=== PATIENT | female | born 1985 | race Caucasian/White ===

== ENCOUNTER 2017-05-22 01:27 | Inpatient (IN) | payer OTHER ==
[2017-05-22] MEDS ORDERED: METOPROLOL TARTRATE 5 MG/5 ML INJ IV ONE ×2 (02:03→02:28)
[2017-05-22 02:41] LABS: Absolute Lymphocytes (CBC) 4.1 K/uL (0.7-4.9); Absolute Monocytes 0.7 K/uL (0.1-1.3); Absolute Neutrophil 5.9 K/uL (1.8-8.0); Basophils % 1.3 % (0-1.3); Eosinophils % 1.2 % (0-4.4); Hematocrit 44.9 % (36.0-45.0); MCH 27.9 pg (27.0-35.0); MCV 84.5 fL (80-100); MPV 9.4 fL (7.6-11.3); Monocytes % 6.5 % (3.3-12.3); RBC Red Blood Cell Count 5.31 M/uL (3.86-4.86)
[2017-05-22 02:54] LABS: Bicarbonate 24 mEq/L (21-31); Glucose Level 97 mg/dL (65-120); Potassium 3.2 mEq/L (3.6-5.0); Sodium Level 138 mEq/L (135-145)
--- NOTE | 2017-05-22 02:58 | EDPHYS ---
Physician Documentation [facility] Name: Rita Calles Age: 32 yrs Sex: Female : 1985 Arrival Date: 05/22/2017 Time: 01:29 Bed 2 Private MD: ED Physician Trevon Robles HPI: 05/22 02:53 This 32 yrs old Female presents to ER via Ambulatory with complaints of gs Irregular Pulse. 02:53 The patient presents with a history of irregular heart beat. Onset: The gs symptoms/episode began/occurred acutely, today. Duration: The patient or guardian reports a single episode, that is still ongoing. Modifying factors: The symptoms are aggravated by nothing. The symptoms are alleviated by nothing. Associated signs and symptoms: Pertinent negatives: chest pain. Severity of symptoms: At their worst the symptoms were severe in the emergency department the symptoms are unchanged. The patient has not experienced similar symptoms in the past. 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 - Social history:: Smoking status: Patient/guardian denies using tobacco. ROS: 02:53 All other systems are negative. gs Exam: 02:53 Head/Face: Normocephalic, atraumatic. Eyes: Pupils equal round and reactive to light, gs extra-ocular motions intact. Lids and lashes normal. Conjunctiva and sclera are non-icteric and not injected. Cornea within normal limits. Periorbital areas with no swelling, redness, or edema. ENT: Nares patent. No nasal discharge, no septal abnormalities noted. Tympanic membranes are normal and external auditory canals are clear. Oropharynx with no redness, swelling, or masses, exudates, or evidence of obstruction, uvula midline. Mucous membranes moist. Neck: Trachea midline, no thyromegaly or masses palpated, and no cervical lymphadenopathy. Supple, full range of motion without nuchal rigidity, or vertebral point tenderness. No Meningismus. Chest/axilla: Normal chest wall appearance and motion. Nontender with no deformity. No lesions are appreciated. Respiratory: Lungs have equal breath sounds bilaterally, clear to auscultation and percussion. No rales, rhonchi or wheezes noted. No increased work of breathing, no retractions or nasal flaring. Abdomen/GI: Soft, non-tender, with normal bowel sounds. No distension or tympany. No guarding or rebound. No evidence of tenderness throughout. Back: No spinal tenderness. No costovertebral tenderness. Full range of motion. Skin: Warm, dry with normal turgor. Normal color with no rashes, no lesions, and no evidence of cellulitis. MS/ Extremity: Pulses equal, no cyanosis. Neurovascular intact. Full, normal range of motion. Neuro: Awake and alert, GCS 15, oriented to person, place, time, and situation. Cranial nerves II-XII grossly intact. Motor strength 5/5 in all extremities. Sensory grossly intact. Cerebellar exam normal. Normal gait. 02:53 Constitutional: The patient appears alert, awake. 02:53 Cardiovascular: Rate: tachycardic, Rhythm: irregularly irregular, Pulses: no pulse deficits are appreciated, Heart sounds: normal. 02:53 ECG was reviewed by the Attending Physician. 02:53 ECG was reviewed by the Attending Physician. Vital Signs: 01:35 BP 175 / 154; Pulse 96; Resp 20; Temp 98.6(TE); Pulse Ox 100% on R/A; Weight 132.45 kg ak1 (R); Height 5 ft. 9 in. (175.26 cm) (R); Pain 0/10; 01:41 Pulse 161; bb 01:47 BP 171 / 126; Pulse 125; Resp 20; Pulse Ox 100% on R/A; ak1 01:49 BP 148 / 96; Pulse 120; Resp 18; Pulse Ox 100% on R/A; ak1 02:15 BP 112 / 96; Pulse 96; Resp 18; Pulse Ox 100% ; bp 03:46 BP 117 / 81; Pulse 105; Resp 18 S; Pulse Ox 100% ; ea 01:35 Body Mass Index 43.12 (132.45 kg, 175.26 cm) ak1 01:41 per EKG bb MDM: 01:50 Patient medically screened. gs 02:53 Differential diagnosis: arrythmia, dehydration, stress disorder, mi. Data reviewed: vital signs, nurses notes. Response to treatment: the patient's symptoms have markedly improved after treatment, and as a result, I will admit patient. 05/22 01:51 Order name: Basic Metabolic Panel 05/22 01:51 Order name: BNP 05/22 01:51 Order name: CBC with Diff 05/22 01:51 Order name: LFT's 05/22 01:51 Order name: Magnesium 05/22 01:51 Order name: PT-INR 05/22 01:51 Order name: Troponin (emerg Dept Use Only) 05/22 01:51 Order name: TSH 05/22 02:48 Order name: CBC with Automated Diff; Complete Time: 02:58 EDMN 05/22 02:52 Order name: Troponin (Emerg Dept Use Only); Complete Time: 02:58 EDMN 05/22 02:55 Order name: Basic Metabolic Panel [facility] 05/22 02:55 Order name: BNP B-Type Natriuretic Peptide; Complete Time: 02:58 EDMN 05/22 03:01 Order name: Liver (Hepatic) Function [facility] 05/22 03:01 Order name: Magnesium [facility] 05/22 01:51 Order name: XRAY Chest (1 view) 05/22 01:51 Order name: EKG; Complete Time: 01:53 05/22 01:51 Order name: Cardiac monitoring; Complete Time: 01:54 05/22 01:51 Order name: EKG - Nurse/Tech; Complete Time: 01:54 05/22 01:51 Order name: IV Saline Lock; Complete Time: 01:54 05/22 01:51 Order name: Labs collected and sent; Complete Time: 01:54 05/22 01:51 Order name: O2 Per Protocol; Complete Time: 01:54 05/22 03:02 Order name: Urine Dipstick--Ancillary (enter results) [facility] 05/22 03:02 Order name: Urine --Ancillary (enter results) [facility] 05/22 03:33 Order name: Thyroid Stimulating Hormone [facility] 05/22 03:44 Order name: Protime (+INR) [facility] 05/22 04:00 Order name: Urine --Ancillary [facility] 05/22 04:00 Order name: Urine Dipstick-Ancillary [facility] 05/22 01:51 Order name: O2 Sat Monitoring; Complete Time: 01:54 05/22 01:51 Order name: Urine Dipstick-Ancillary (obtain specimen); Complete Time: 03:08 05/22 02:23 Order name: EKG - Nurse/Tech; Complete Time: 03:08 EC:53 Rate is 161 beats/min. Rhythm is regular. QRS interval is normal. T waves are Normal. gs No ST changes noted. Clinical impression: Atrial Fibrillation. Interpreted by me. 02:53 Rate is 91 beats/min. Rhythm is irregularly irregular. QRS interval is normal. T waves gs are Normal. No ST changes noted. Clinical impression: Atrial Fibrillation. Interpreted by me. Administered Medications: 01:45 Drug: Lopressor 5 mg Route: IVP; Site: right antecubital; bp 01:48 Drug: Lopressor 5 mg Route: IVP; Site: right antecubital; bp 02:10 Drug: Lopressor 5 mg Route: IVP; Site: right antecubital; bp 02:13 Follow up: Response: Marked relief of symptoms bp 03:20 Drug: Aspirin Chewable Tablet 324 mg Route: PO; bp 03:49 Follow up: Response: No adverse reaction bp 03:20 Drug: Lovenox 1 mg/kg Route: Sub-Q; Site: right lower abdomen; bp 03:49 Follow up: Response: No adverse reaction bp Disposition: 05/22/17 02:57 Hospitalization ordered by Yana Dangelo for Inpatient Admission. Preliminary diagnosis is Paroxysmal atrial fibrillation. - Bed requested for Telemetry/MedSurg (Inpatient). - Status is Inpatient Admission. bp - Condition is Stable. - Problem is new. - Symptoms have improved. UTI on Admission? No Critical care time excluding procedures: 02:53 Critical care time: Bedside Care: 10 minutes, Consultation: 10 minutes, Family gs Intervention: 10 minutes. Total time: 30 minutes Signatures: Dispatcher [employer] EDMN Britta De RN RN mw Krenek, Amber, RN RN ak1 Trevon Robles MD MD gs Peltier, Brian, RN RN bp
--- NOTE | 2017-05-22 02:58 | ER ---
Nurse's Notes [facility] Name: Rita Calles Age: 32 yrs Sex: Female : 1985 Arrival Date: 05/22/2017 Time: 01:29 Bed 2 Private MD: Diagnosis: Paroxysmal atrial fibrillation Presentation: 05/22 01:33 Presenting complaint: Patient states: "fluttering in my chest" while trying to go to ak1 sleep. 01:36 Transition of care: patient was not received from another setting of care. Onset of ak1 symptoms was May 22, 2017. Care prior to arrival: None. 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 - Social history:: Smoking status: Patient/guardian denies using tobacco. Screenin:50 Abuse screen: Denies threats or abuse. Denies injuries from another. Nutritional bp screening: No deficits noted. Tuberculosis screening: No symptoms or risk factors identified. Fall Risk None identified. Assessment: 01:40 Reassessment: RECD 32YO WF WITH PALPITATIONS, OCCURRING SPONTANEOUSLY WHILE WATCHING bp MOVIE. NO CARDIAC HX. General: Appears distressed, comfortable, obese, Behavior is cooperative, appropriate for age, anxious. Pain: Denies pain. Neuro: Level of Consciousness is awake, alert, obeys commands, Oriented to person, place, time, situation, Appropriate for age. Cardiovascular: Rhythm is atrial fibrillation with rapid ventricular response. Respiratory: Airway is patent Respiratory effort is even, unlabored, Respiratory pattern is regular, symmetrical. GI: No signs and/or symptoms were reported involving the gastrointestinal system. : No signs and/or symptoms were reported regarding the genitourinary system. EENT: No deficits noted. Derm: No deficits noted. Musculoskeletal: Circulation, motion, and sensation intact. Range of motion: intact in all extremities. 01:50 Pain: Pain does not radiate. Pain began 1 hour ago. bp 02:35 Reassessment: SINUS RHYTHM TO SINUS TACH NOTED ON MONITOR. PT OUT OF BED TO B/S COMMODE.bp 03:30 Reassessment: ADMIT IN PROCESS. PT REMAINS IN SR TO ST ON MONITOR. bp Vital Signs: 01:35 BP 175 / 154; Pulse 96; Resp 20; Temp 98.6(TE); Pulse Ox 100% on R/A; Weight 132.45 kg ak1 (R); Height 5 ft. 9 in. (175.26 cm) (R); Pain 0/10; 01:41 Pulse 161; bb 01:47 BP 171 / 126; Pulse 125; Resp 20; Pulse Ox 100% on R/A; ak1 01:49 BP 148 / 96; Pulse 120; Resp 18; Pulse Ox 100% on R/A; ak1 02:15 BP 112 / 96; Pulse 96; Resp 18; Pulse Ox 100% ; bp 03:46 BP 117 / 81; Pulse 105; Resp 18 S; Pulse Ox 100% ; ea 01:35 Body Mass Index 43.12 (132.45 kg, 175.26 cm) ak1 01:41 per EKG bb ED Course: 01:29 Patient arrived in ED. al2 01:35 Arm band placed on Patient placed in an exam room, on a stretcher, on inner layer scrubber tender, ak1 on pulse oximetry, Patient notified of wait time. 01:37 Triage completed. ak1 01:40 Trevon Robles MD is Attending Physician. gs 01:40 Patient has correct armband on for positive identification. Placed in gown. Bed in low ak1 position. Call light in reach. Side rails up X 1. leaflet distributor on. Pulse ox on. NIBP on. 01:52 Elpidio Lopez, RANGEL is Primary Nurse. bp 01:53 Inserted saline lock: 20 gauge in right antecubital area, using aseptic technique. ak1 Blood collected. 02:32 X-ray completed. Portable x-ray completed in exam room. Patient tolerated procedure tm4 well. 02:57 Yana Dangelo MD is Hospitalizing Provider. gs 03:06 Urine collected: clean catch specimen, clear, katerin colored, EKG done, by ED staff, cb2 reviewed by Trevon Robles MD. 04:18 No provider procedures requiring assistance completed. Patient admitted, IV remains in bp place. Patient maintains SpO2 saturation greater than 95% on room air. Administered Medications: 01:45 Drug: Lopressor 5 mg Route: IVP; Site: right antecubital; bp 01:48 Drug: Lopressor 5 mg Route: IVP; Site: right antecubital; bp 02:10 Drug: Lopressor 5 mg Route: IVP; Site: right antecubital; bp 02:13 Follow up: Response: Marked relief of symptoms bp 03:20 Drug: Aspirin Chewable Tablet 324 mg Route: PO; bp 03:49 Follow up: Response: No adverse reaction bp 03:20 Drug: Lovenox 1 mg/kg Route: Sub-Q; Site: right lower abdomen; bp 03:49 Follow up: Response: No adverse reaction bp Outcome: 02:57 Decision to Hospitalize by Provider. 04:19 Admitted to Tele accompanied by tech, family with patient, via wheelchair, with chart, bp Report called to VANITA MULTANI 04:19 Condition: stable 04:19 Instructed on the need for admit. 04:21 Patient left the ED. bp Signatures: Catalina Reaves tm4 Kenia Leggett RN RN Katerin Hernandez RN RN Uriel Fonseca Elena RN Trevon Sarah ea, MD MD gs Peltier, Brian RN Payton Gould2 Corrections: (The following items were deleted from the chart) 02:38 01:41 Pulse 161bpm; george vazquez
[2017-05-22 03:00] LABS: ALT/SGPT 30 IU/L (10-60); AST/SGOT 32 IU/L (10-42); Albumin 4.2 g/dL (3.2-5.5); BUN Blood Urea Nitrogen 13 mg/dL (6-20); Bilirubin Direct 0.1 mg/dL (0-0.2); Bilirubin Total 0.6 mg/dL (0.3-1.2); Glomerular Filtration Rate > 90 mL/min (=/>90); Magnesium 1.9 mg/dL (1.8-2.5); Protein, Total 7.7 g/dL (6.0-8.3)
[2017-05-22] MEDS ORDERED: MORPHINE 4 MG/ML SYR IV PRN (03:20)
[2017-05-22] MEDS ORDERED: ALPRAZOLAM 0.25 MG TABLET PO PRN (03:20)
[2017-05-22 03:32] LABS: Thyroid Stimulating Hormone 3.48 uIU/mL (0.34-5.60)
[2017-05-22 03:43] LABS: Protime INR 1.09
[2017-05-22 04:00] LABS: Urine Blood NEGATIVE (NEG); Urine Glucose NEGATIVE (NEG); Urine Protein NEGATIVE (NEG); Urine pH 7.5 (5.0-7.0)
[2017-05-22] MEDS: METOPROLOL TARTRATE 5 MG/5 ML INJ IV SCH ×2 (04:00→04:05)
[2017-05-22] MEDS ORDERED: ASPIRIN 81 MG CHEWABLE TABLET ONE (04:02)
[2017-05-22] MEDS ORDERED: ENOXAPARIN 100 MG/ML SYR SQ ONE (04:02)
[2017-05-22 04:24] LABS: Alkaline Phosphatase 100 IU/L (42-121)
--- NOTE | 2017-05-22 04:51 | P.HP ---
Certification for Inpatient Patient admitted to: Inpatient With expected LOS: >2 Midnights Patient will require the following post-hospital care: None Practitioner: I am a practitioner with admitting privileges, knowledge of patient current condition, hospital course, and medical plan of care. Services: Services provided to patient in accordance with Admission requirements found in Title 42 Section 412.3 of the Code of Federal Regulations Patient History Date of Service: 05/22/17 Reason for admission: Atrial fibrillation with rapid ventricular response History of Present Illness: Patient is a 32-year-old female who is admitted to the hospital with atrial fibrillation. She says she has been feeling some fluttering on an off for a while. She has never been told that she has any cardiac arrhythmia issues. About a year ago, she had a gastric sleeve procedure. She lost 200 lbs. She used to weight 492 lbs. She has been doing well and states she had not eaten anything unusual. She does not take in a lot of caffeine. She does not drink energy drinks. She was admitted to the hospital for atrial fib with rapid ventricular response with a heart rate of 160. She was given IV Lopressor and her heart rate has come down. She will be admitted to the hospital for further evaluation. Allergies Sulfa (Sulfonamide Antibiotics) Allergy (Unverified 08/06/15 17:19) Unknown - Past Medical/Surgical History -: Morbid obesity -: Gastric sleeve procedure - Social History Smoking Status: Never smoker Alcohol use: No CD- Drugs: No Review of Systems 10-point ROS is otherwise unremarkable Physical Examination - Vital Signs Temperature: 98.6 F Blood Pressure: 117/81 Pulse: 105 Respirations: 18 - Physical Exam General: Alert, In no apparent distress, Oriented x3 HEENT: Atraumatic, PERRLA, Mucous membr. moist/pink, EOMI, Sclerae nonicteric Neck: Supple, 2+ carotid pulse no bruit, No LAD, Without JVD or thyroid abnormality Respiratory: Clear to auscultation bilaterally, Normal air movement Cardiovascular: Normal S1 S2, No murmurs, Irregular heart rate/rhythm Gastrointestinal: Normal bowel sounds, Soft and benign, Non-distended, No tenderness Musculoskeletal: No clubbing, No swelling, No tenderness Integumentary: No rashes Neurological: Normal gait, Normal speech, Normal strength at 5/5 x4 extr, Normal tone, Sensation intact, Cranial nerves 3-12 intact, Normal affect Lymphatics: No axilla or inguinal lymphadenopathy - Studies Laboratory Data (last 24 hrs) 05/22/17 01:41: PT 12.9 H, INR 1.09 05/22/17 01:41: WBC 11.0 H, Hgb 14.8, Hct 44.9, Plt Count 326 05/22/17 01:41: B-Natriuretic Peptide 78 05/22/17 01:41: Sodium 138, Potassium 3.2 L, BUN 13, Creatinine 0.56, Glucose 97 , Magnesium 1.9, Total Bilirubin 0.6, AST 32, ALT 30, Alkaline Phosphatase 100 Assessment & Plan - Problems (Diagnosis) (1) Atrial fibrillation with rapid ventricular response Current Visit: Yes Status: Acute (2) Morbid obesity Current Visit: Yes Status: Acute (3) Hx of bariatric surgery Current Visit: Yes Status: Acute - Plan 1. Serial troponins and EKG 2. Cardiology consultation 3. Echocardiogram 4. Anticoagulation & beta-jessie for rate control 5. Gentle hydration 6. GI and DVT prophylaxis Discharge Plan: Home Plan to discharge in: Greater than 2 days - Advance Directives Does patient have a Living Will: No Does patient have a Durable POA for Healthcare: No - Code Status/Comfort Care Code Status Assessed: Yes Code Status: Full Code Critical Care: No Time Spent Managing PTS Care (In Minutes): 50
[2017-05-22 04:56] VITALS: BMI 42.8
[2017-05-22] MEDS: METOPROLOL TAR 50 MG TAB PO SCH ×2 (05:00→07:54)
--- NOTE | 2017-05-22 06:34 | EKG ---
Test Date: 2017-05-22 Test Time: 02:52:34 Proposal Manager: DOMINIC MEASUREMENT RESULTS: Intervals: Rate: 91 AR: QRSD: 94 QT: 348 QTc: 428 [place]: P: AR: QRS: 29 T: 20 INTERPRETIVE STATEMENTS: Atrial fibrillation Cannot rule out Anterior infarct, age undetermined Abnormal ECG Compared to ECG 05/22/2017 01:41:30 Myocardial infarct finding now present ST (T wave) deviation no longer present Electronically Signed On 05-22-17 06:33:51 CDT by Aneudy Paredes
--- NOTE | 2017-05-22 06:35 | EKG ---
Test Date: 2017-05-22 Test Time: 01:41:30 Animal Maintenance Supervisor: DOMINIC MEASUREMENT RESULTS: Intervals: Rate: 161 NV: QRSD: 88 QT: 288 QTc: 471 [place]: P: NV: QRS: 39 T: -66 INTERPRETIVE STATEMENTS: Atrial fibrillation with rapid ventricular response Nonspecific ST and T wave abnormality, probably digitalis effect Abnormal ECG Compared to ECG 06/02/1994 07:00:00 ST (T wave) deviation now present Sinus rhythm no longer present Electronically Signed On 05-22-17 06:34:01 CDT by Aneudy Paredes
[2017-05-22 07:33] LABS: Thyroid Stimulating Hormone 1.25 uIU/mL (0.34-5.60)
--- NOTE | 2017-05-22 10:09 | P.PN ---
Subjective Date of Service: 05/22/17 Primary Care Provider: [facility] [place] Chief Complaint: Atrial fibrillation with rapid ventricular response Subjective: Doing well Physical Examination - Vital Signs Temperature: 97.5 F Blood Pressure: 104/55 Pulse: 64 Respirations: 16 Pulse Ox (%): 97 - Physical Exam General: Alert, In no apparent distress, Oriented x3, Cooperative HEENT: Atraumatic, Mucous membr. moist/pink Neck: Supple, No Thyromegaly Respiratory: Clear to auscultation bilaterally, Normal air movement Cardiovascular: Irregular heart rate/rhythm (Atrial fibrillation, rate controlled) Gastrointestinal: Normal bowel sounds, Soft and benign, Non-distended, No ascites, No tenderness, No masses, No rebound, No guarding Musculoskeletal: No erythema, No tenderness, No warmth Integumentary: No tenderness/swelling, No erythema, No warmth, No cyanosis Neurological: Normal speech, Normal strength at 5/5 x4 extr, Normal tone, Normal affect Lymphatics: No axilla or inguinal lymphadenopathy - Studies Laboratory Data (last 24 hrs) 05/22/17 01:41: PT 12.9 H, INR 1.09 05/22/17 01:41: WBC 11.0 H, Hgb 14.8, Hct 44.9, Plt Count 326 05/22/17 01:41: B-Natriuretic Peptide 78 05/22/17 01:41: Sodium 138, Potassium 3.2 L, BUN 13, Creatinine 0.56, Glucose 97 , Magnesium 1.9, Total Bilirubin 0.6, AST 32, ALT 30, Alkaline Phosphatase 100 Medications List Reviewed: Yes Assessment & Plan - Problems (Diagnosis) (1) Hypokalemia Current Visit: Yes Status: Acute Plan: Will continue to monitor and replace appropriately. Replacement protocol in place. (2) Atrial fibrillation with rapid ventricular response Current Visit: Yes Status: Acute Plan: Patient has been started on sotalol. Cardiology to assess and make further recommendations. Will obtain echocardiogram. Will monitor closely on medication. Patient on anti coagulation therapy. (3) Hx of bariatric surgery Current Visit: Yes Status: Chronic Plan: Overall stable. She has lost over 200 lb. (4) Morbid obesity Current Visit: Yes Status: Chronic Plan: Will continue with lifestyle modification education. Discharge Plan: Home Plan to discharge in: 48 Hours Time Spent Managing Pts Care (In Minutes): 55
[2017-05-22] MEDS ORDERED: POTASSIUM 25 MEQ EFFERV TAB PO ONE (10:16)
--- NOTE | 2017-05-22 10:45 | EKG ---
Test Date: 2017-05-22 Test Time: 08:30:07 Four Roll Calender Operator: MARVIN MEASUREMENT RESULTS: Intervals: Rate: 51 NH: 160 QRSD: 88 QT: 450 QTc: 414 [place]: P: 37 NH: 160 QRS: 44 T: 33 INTERPRETIVE STATEMENTS: Sinus bradycardia with marked sinus arrhythmia Low voltage QRS Borderline ECG Compared to ECG 05/22/2017 02:52:34 Low QRS voltage now present Atrial fibrillation no longer present Myocardial infarct finding no longer present Electronically Signed On 05-22-17 10:44:43 CDT by Aneudy Paredes
--- NOTE | 2017-05-22 12:34 | RAD REPORT ---
EXAM DESCRIPTION: RAD - Chest Single View - 05/22/2017 2:33 am CLINICAL HISTORY: Chest pain. COMPARISON: 07/12/2016 FINDINGS: Portable technique limits examination quality. The lungs are grossly clear. The heart is normal in size. No displaced fractures. IMPRESSION: No acute intrathoracic process suspected.
--- NOTE | 2017-05-22 13:12 | CON ---
Reason For Consult: Atrial fibrillation. History Of Present Illness: Over the past year, Mrs. Kohler notes flutter in her chest. It is so br ief, it goes away, she never sought medical attention, but yesterday it started fluttering, then when it did not go away, she came to the emergency room. She was found to be in atrial fib, the heart ra te was 161. She received beta-blockers, metoprolol and now has received at least 1 dose of Betapace and her telemetry shows sinus rhythm, we do not have a 12-lead EKG showing that she is in sinus rhyth m yet. The patient has never been diagnosed with atrial fibrillation before and she has morbid obesi ty, she weighed close to 500 pounds, had gastric sleeve, and lost 170 pounds over the last year. She does not have diabetes or high blood pressure, never used tobacco, never had myocardial infarction o r stroke or thyroid disease. She has had her tubes tied, she is multigravida. Social History: She uses no tobacco. Allergies: SHE IS ALLERGIC TO SULFA DRUGS, NO OTHER ALLERGIES. Physical Examination: General: She is alert, oriented, pleasant, not in distress. Vital Signs: 5 feet 9, 290 pounds. HEENT: Unremarkable. Carotids, no bruit. Lungs: Clear. Cardiac: Normal. Abdomen: Soft. Extremities: Normal. Laboratory Exam: She has had a TSH that is normal. Plan: I think we should give her Betapace to help control her rhythm at this point. She is not stri ctly high risk candidate, her CHADS-Vasc score would be just 1 or 2, so full anticoagulation will be optional. We will start Betapace. We will give her Xarelto while she is here, but maybe she can go home taking aspirin as the only anticoagulant. We should do stress test, echocardiogram and lung sca n to make sure she has not had pulmonary embolus. See if she has underlying pulmonary hypertension o r some other things that would cause her to have AFib and decide on outpatient therapy tomorrow. HARIS/BEENA Voice ID: [id number] Report ID: [id number]
[2017-05-22 14:50] LABS: CKMB Creatine Kinase MB 0.8 ng/ml (0.3-4.0)
[2017-05-22] MEDS ORDERED: RIVAROXABAN 20 MG TABLET PO SCH (17:00)
[2017-05-22] MEDS: SOTALOL HCL 80 MG TAB PO SCH (18:36)
[2017-05-22] MEDS: ACETAMINOPHEN 500 MG TAB PO PRN (20:37)
[2017-05-23 04:12] VITALS: O2SAT 99
[2017-05-23 04:17] LABS: Absolute Lymphocytes (CBC) 3.1 K/uL (0.7-4.9); Absolute Monocytes 0.5 K/uL (0.1-1.3); Absolute Neutrophil 3.4 K/uL (1.8-8.0); Basophils % 1.4 % (0-1.3); Eosinophils % 1.9 % (0-4.4); Hematocrit 38.7 % (36.0-45.0); Lymphocytes % 42.9 % (15.3-44.8); MCH 27.8 pg (27.0-35.0); MCV 84.7 fL (80-100); MPV 8.9 fL (7.6-11.3); RBC Red Blood Cell Count 4.57 M/uL (3.86-4.86)
[2017-05-23 04:25] LABS: Bicarbonate 28 mEq/L (21-31); Potassium 3.8 mEq/L (3.6-5.0); Sodium Level 138 mEq/L (135-145)
[2017-05-23 04:40] LABS: BUN Blood Urea Nitrogen 11 mg/dL (6-20); Glomerular Filtration Rate > 90 mL/min (=/>90); Glucose Level 96 mg/dL (65-120)
[2017-05-23] MEDS ORDERED: POTASSIUM CL SA 10 MEQ TAB PO ONE (04:57)
[2017-05-23] MEDS: SOTALOL HCL 80 MG TAB PO SCH (05:37)
[2017-05-23] MEDS: ACETAMINOPHEN 500 MG TAB PO PRN ×2 (05:38→11:27)
[2017-05-23] MEDS ORDERED: PANTOPRAZOLE 40MG TABLET PO SCH (06:30)
[2017-05-23] MEDS ORDERED: REGADENOSON 0.4 MG/5 ML SYR IV ONE (08:05)
--- NOTE | 2017-05-23 09:58 | ECHO ---
HEIGHT: 5 ft 9 in WEIGHT: 290 lb 1.6 oz DATE OF STUDY: 05/23/[address]: Aneudy Paredes MD 2-DIMENSIONAL: YES M.MODE: YES DOPPLER: YES COLOR FLOW: YES TDS: YES PORTABLE: DEFINITY: BUBBLE STUDY: DIAGNOSIS: ATRIAL FIBRILLATION, PULMONARY HYPERTENSION CARDIAC HISTORY: CATHERIZATION: NO SURGERY: NO PROSTHETIC VALVE: NO PACEMAKER: NO MEASUREMENTS (cm) DIASTOLIC (NORMALS) SYSTOLIC (NORMALS) IVSd 0.9 (0.6-1.2) LA Diam 3.8 (1.9-4.0) LVEF 60% LVIDd 5.6 (3.5-5.7) LVIDs 3.8 (2.0-3.5) %FS 32% LVPWd 0.9 (0.6-1.2) Ao Diam 3.0 (2.0-3.7) 2 DIMENSIONAL ASSESSMENT: RIGHT ATRIUM: NORMAL LEFT ATRIUM: NORMAL RIGHT VENTRICLE: NORMAL LEFT VENTRICLE: NORMAL TRICUSPID VALVE: NORMAL MITRAL VALVE: NORMAL PULMONIC VALVE: NORMAL AORTIC VALVE: NORMAL PERICARDIAL EFFUSION: NONE AORTIC ROOT: NORMAL LEFT VENTRICULAR WALL MOTION: NORMAL DOPPLER/COLOR FLOW: PHYSIOLOGIC TRICUSPID REGURGITATION. NORMAL RIGHT VENTRICULAR SYSTOLIC PRESSURE. COMMENTS: NORMAL 2-DIMENSIONAL ECHOCARDIOGRAM WITH DOPPLER. TECHNOLOGIST: ANAMIKA DURHAM
--- NOTE | 2017-05-23 10:28 | TREADPHA ---
DX: ATRIAL FIBRILLATION Date of Study: 05/23/2017 Ht: 5' 9 " Wt: 290 lb 1.6 oz Consulting Physician: JOSE ANGEL MEDICATIONS: TYLENOL, BETAPACE, PROTNIX HISTORY: 32 YEAR OLD FEMALE WITH COMPLAINTS OF ATRIAL FIBRILLATION. MEDICAL HISTORY: , EAR TUBES, GASTRIC SLEEVE PHYSICIAL EXAMINATION: RESTING B.P.: 107/62 RESTING H.R.: 51 RESTING EKG: SINUS BRADYCARDIA, OTHERWISE NORMAL PROTOCOL: LEXISCAN EXERCISE TIME: 3:30 B.P. AT PEAK STRESS: 111/56 IMPRESSION: LEXISCAN INJECTED, CARDIOLITE INJECTED PER PROTOCOL. SEE NUCLEAR MEDICINE REPORT. NO SUPRA VENTRICULAR TACHYARDIA, NO VENTRICULAR TACHYCARDIA, NO PREMATURE VENTRICULAR COMPLEXES. DENIED CHEST PAIN. NON DIAGNOSTIC EKG WITH LEXISCAN STRESS.
--- NOTE | 2017-05-23 10:33 | RAD REPORT ---
EXAM DESCRIPTION: CT - Chest For Pe Angio - 05/23/2017 10:24 am CLINICAL HISTORY: Chest pain. Atrial fibrillation. COMPARISON: 05/22/2017 plain radiograph. TECHNIQUE: CT angiogram of the pulmonary arteries was performed with MIP. All CT scans are performed using dose optimization technique as appropriate and may include automated exposure control or mA/KV adjustment according to patient size. FINDINGS: No evidence of pulmonary thromboembolism. No acute aortic finding demonstrated. The lungs are clear. No significant pericardial or pleural fluid. No concerning bony finding. IMPRESSION: No evidence of pulmonary thromboembolism. No acute lung findings.
--- NOTE | 2017-05-23 11:05 | RAD REPORT ---
EXAM DESCRIPTION: NM - Rest Stress Cardiac Imaging - 05/23/2017 10:59 am CLINICAL HISTORY: Chest pain. COMPARISON: None. TECHNIQUE: The patient was administered approximately 10mCi of Tc 99m Sestamibi prior to resting SPE CT imaging of the heart. The patient was then administered approximately 30 mCi of Tc 99m Sestamibi f ollowing exercise or pharmacologic stress. Multiplanar SPECT images were reviewed. FINDINGS: No stress induced ischemic defect is seen to suggest stress induced ischemia. A fixed defe ct is noted in the anterior wall likely scar tissue or breast attenuation artifact. The end diastolic volume is 157 ml, the end systolic volume is 78 ml, and the ejection fraction is 51 %. IMPRESSION: No stress induced ischemia.
[2017-05-23 15:30] VITALS: BP 110/58; TEMP 98.4
--- NOTE | 2017-05-23 16:11 | P.DS ---
Admission Date: 05/22/17 Discharge Date: 05/23/17 Primary Care Provider: [facility] Disposition: ROUTINE DISCHARGE Discharge Condition: GOOD Reason for Admission: Atrial fibrillation with rapid ventricular response Consultations: Cardiology-Dr. Paredes Procedures: Echocardiogram: Ejection fraction 60% otherwise unremarkable. CT chest: No pulmonary embolism noted. Stress test showed no stress-induced ischemia. - Problems (1) Hypokalemia Status: Acute (2) Atrial fibrillation with rapid ventricular response Onset Date: 05/23/17 Status: Acute (3) Hx of bariatric surgery Status: Chronic (4) Morbid obesity Onset Date: 05/23/17 Status: Chronic (5) Palpitations Status: Acute Brief History of Present Illness: 32-year-old female presented emergency room with palpitations. Patient was found to be in new onset atrial fibrillation. The patient was given Lopressor to help with her rate. The patient was admitted for further evaluation and treatment. Hospital Course: The patient did well during the course of his stay. The patient responded well to Lopressor. The patient was evaluated by cardiology. Cardiology started the patient on Betapace. The patient was also given Xarelto during her stay. Cardiology ordered a CT chest to evaluate for pulmonary embolism, echocardiogram and stress test. The CT chest showed no pulmonary embolism. Otherwise unremarkable. Echocardiogram was also unremarkable. Stress test showed no stress-induced ischemia. At discharge cardiology recommended she continue with Betapace 80 mg 1 pill twice daily. The patient was given the option to start chronic anti coagulation therapy like Xarelto or aspirin. The patient preferred to take aspirin. At discharge she will continue with aspirin 81 mg daily. Recommendation is for the patient to follow up with cardiology in 2-4 weeks to follow up this hospitalization. Patient may require further evaluation. Vital Signs/Physical Exam: Temp Pulse Resp BP Pulse Ox 98.4 F 59 16 110/58 L 98 05/23/17 15:29 05/23/17 15:29 05/23/17 15:29 05/23/17 15:29 05/23/17 15:29 General: Alert, In no apparent distress, Oriented x3, Cooperative HEENT: Atraumatic, Mucous membr. moist/pink Neck: Supple, No Thyromegaly Respiratory: Clear to auscultation bilaterally, Normal air movement Cardiovascular: Irregular heart rate/rhythm (Atrial fibrillation, rate controlled) Gastrointestinal: Normal bowel sounds, Soft and benign, Non-distended, No tenderness, No masses, No rebound, No guarding Musculoskeletal: No erythema, No tenderness, No warmth Integumentary: No tenderness/swelling, No erythema, No warmth, No cyanosis Neurological: Normal speech, Normal strength at 5/5 x4 extr, Normal tone, Normal affect Lymphatics: No axilla or inguinal lymphadenopathy Laboratory Data at Discharge: WBC 7.3 K/uL (4.3-10.9) D 05/23/17 03:56 Hgb 12.7 g/dL (12.0-15.0) 05/23/17 03:56 Hct 38.7 % (36.0-45.0) 05/23/17 03:56 Plt Count 265 K/uL (152-406) 05/23/17 03:56 PT 12.9 SECONDS (9.5-12.5) H 05/22/17 01:41 INR 1.09 05/22/17 01:41 Sodium 138 mEq/L (135-145) 05/23/17 03:56 Potassium 3.8 mEq/L (3.6-5.0) 05/23/17 03:56 BUN 11 mg/dL (6-20) 05/23/17 03:56 Creatinine 0.63 mg/dL (0.44-1.00) 05/23/17 03:56 Glucose 96 mg/dL (65-120) 05/23/17 03:56 Magnesium 2.0 mg/dL (1.8-2.5) 05/23/17 03:56 Total Bilirubin 0.6 mg/dL (0.3-1.2) 05/22/17 01:41 AST 32 IU/L (10-42) 05/22/17 01:41 ALT 30 IU/L (10-60) 05/22/17 01:41 Alkaline Phosphatase 100 IU/L (42-121) 05/22/17 01:41 Troponin I < 0.03 ng/mL (<0.03) 05/22/17 13:35 B-Natriuretic Peptide 78 pg/ml (<=100) 05/22/17 01:41 Triglycerides 44 mg/dL (35-160) 05/22/17 05:25 Cholesterol 148 mg/dL (<200) 05/22/17 05:25 HDL Cholesterol 38 mg/dL (29-89) 05/22/17 05:25 Cholesterol/HDL Ratio 3.89 05/22/17 05:25 Home Medications: Aspirin [Aspirin EC 81 MG] 81 mg PO DAILY #90 tablet. 05/23/17 Sotalol HCl [Betapace*] 80 mg PO BID 6AM 6PM #60 tab 05/23/17 New Medications: Aspirin [Aspirin EC 81 MG] 81 mg PO DAILY #90 tablet. Sotalol HCl [Betapace*] 80 mg PO BID 6AM 6PM #60 tab Patient Discharge Instructions: 1. Patient will need to follow up with her PCP in 1 week to follow up this hospitalization. 2. Patient presented with palpitations. Patient found to have new onset paroxysmally atrial fibrillation. Patient evaluated by Cardiology CT chest unremarkable. Echocardiogram unremarkable. Stress test showed no stress-induced ischemia. At discharge patient will continue with Betapace 80 mg 1 pill twice daily. Patient will also continue with aspirin 81 mg daily. Patient was given the option of chronic anti coagulation therapy, patient preferred aspirin. Recommendation is for the patient to follow up with cardiology in 2-4 weeks to follow up this hospitalization and continue her care. Diet: AHA Activity: Ad michelle Followup: Aneudy Paredes MD [ACTIVE - CAN ADMIT] - (follow up in 2-4 weeks, call to schedule appointment) Time spent managing pt's care (in minutes): 55
== END 2017-05-23 14:41 | disposition home or self-care (01) | DRG 309 ==
LOC: ER 01:27 → ERHOLD 02:59 → 4TH 03:32
PROVIDERS: ADMIT Hospitalist; ATTEND Hospitalist
DX: I48.0 Paroxysmal atrial fibrillation (principal); Z68.41 Body mass index [BMI] 40.0-44.9, adult; R00.2 Palpitations; E87.6 Hypokalemia; Z98.84 Bariatric surgery status; E66.01 Morbid (severe) obesity due to excess calories; Z88.2 Allergy status to sulfonamides
CPT/HCPCS: 36415; 71045; 71275; 78452; 80048; 80061; 80076; 81003; 81025; 82550; 82553; 83735; 83880; 84132; 84439; 84443; 84484; 85025; 85610; 93005; 93017; 93306; 96372; 96374; 99285; A9500; J1650; J2785; Q9967

== ENCOUNTER 2017-07-22 14:35 | Inpatient (IN) | payer OTHER ==
[2017-07-22] MEDS ORDERED: ACETAMINOPHEN 500 MG TAB PO PRN (15:17)
[2017-07-22 15:43] LABS: Absolute Lymphocytes (CBC) 2.5 K/uL (0.7-4.9); Absolute Monocytes 0.6 K/uL (0.1-1.3); Absolute Neutrophil 5.2 K/uL (1.8-8.0); Basophils % 1.1 % (0-1.3); Lymphocytes % 29.8 % (15.3-44.8); MCH 27.5 pg (27.0-35.0); MCV 86.2 fL (80-100); MPV 9.2 fL (7.6-11.3); Monocytes % 6.8 % (3.3-12.3); RBC Red Blood Cell Count 4.64 M/uL (3.86-4.86)
[2017-07-22 15:46] VITALS: BMI 43.2
[2017-07-22 16:10] LABS: Bicarbonate 27 mEq/L (21-31); Glucose Level 83 mg/dL (65-120); Potassium 3.5 mEq/L (3.6-5.0); Sodium Level 137 mEq/L (135-145)
[2017-07-22 16:11] LABS: BUN Blood Urea Nitrogen 16 mg/dL (6-20)
[2017-07-22] MEDS: FLECAINIDE 100 MG TAB PO SCH (18:40)
--- NOTE | 2017-07-22 19:46 | EKG ---
Test Date: 2017-07-22 Test Time: 17:47:09 Expenditure Requisition Clerk: ALEXIA MEASUREMENT RESULTS: Intervals: Rate: 69 CA: 154 QRSD: 98 QT: 418 QTc: 447 [place]: P: 37 CA: 154 QRS: 15 T: 17 INTERPRETIVE STATEMENTS: Normal sinus rhythm with sinus arrhythmia Normal ECG Compared to ECG 05/22/2017 08:30:07 Sinus bradycardia no longer present Electronically Signed On 07-22-17 19:46:07 CDT by Aneudy Paredes
[2017-07-22] MEDS: ZOLPIDEM TARTRATE 5 MG TABLET PO PRN (22:20)
--- NOTE | 2017-07-23 00:01 | HP ---
Date of Admission: 07/22/2017 Reason For Hospitalization: Initiation of antiarrhythmic drug therapy for atrial fibrillation. History Of Present Illness: Ms. Kohler is a woman who is multigravida. She has had morbid obesity w eight-loss surgery, lost a significant amount of weight, and has had several episodes of atrial fibri llation. She is a CHADS-Vasc 1 score, so she is not on chronic anticoagulation, and she has been huy ntaining sinus rhythm on Betapace. However, the Betapace resulted in profound bradycardia and fatigu e even on just 40 mg b.i.d. It is believed that she probably needs to try a different antiarrhythmic drugs, so we put her in the hospital having stopped Betapace 2 days ago and in order to initiate the rapy with flecainide 50 mg b.i.d. She has received 1 dose of that at the time of this dictation. Past Medical History: Otherwise, unremarkable. Allergies: SHE IS ALLERGIC TO SULFA DRUGS. Social History: She uses no tobacco. Rare alcohol. No illegal drugs. No history of MA, stroke, or diabetes. No history of any kind of vascular disease or blood clots. Physical Examination: Vital Signs: Height 5 feet 9 inches, weight 293 pounds, and body mass index 43.3. Lungs: Clear. Carotids: No bruit. Heart: Normal. Abdomen: Soft. Extremities: Normal. Diagnostic Studies: Her electrocardiogram shows sinus rhythm. It showed sinus bradycardia few days ago. Her heart rate now is 71, blood pressure 133/74, O2 saturation 99%, and temperature 97.6. Impression: My impression is that the patient has paroxysmal atrial fibrillation. She is in the [facility] p[facility] to initiate therapy with flecainide that is being done without any evident complications. She will be in the hospital 2 overnights while we observe her to make sure she does not have any proarrhy thmic effect from starting flecainide. MARIA ISABEL Voice ID: [id number]
[2017-07-23] MEDS: FLECAINIDE 100 MG TAB PO SCH ×2 (05:53→17:24)
[2017-07-23] MEDS: ASPIRIN EC 81 MG TAB PO SCH (08:01)
[2017-07-23 08:03] LABS: Urine Appearance CLEAR; Urine Bilirubin NEGATIVE (NEG); Urine Blood NEGATIVE (NEG); Urine Color YELLOW; Urine Glucose NEGATIVE (NEG); Urine Protein NEGATIVE (NEG); Urine Specific Gravity <=1.005 (1.005-1.030); Urine pH 7.5 (5.0-7.0)
[2017-07-23 08:29] LABS: Urine Microscopic Reflex ORDER UMIC
[2017-07-23 08:31] LABS: Urine Bacteria <20 /HPF (<20); Urine RBC <5 /HPF (NONE SEEN)
[2017-07-23 08:48] LABS: Urine Culture Reflex Order REFLEXED
--- NOTE | 2017-07-23 10:47 | PN ---
Subjective: Ms. Kohler is doing fine. Tolerating flecainide. Normal vital signs. No symptoms. No proarrhythmia. If she tolerates tonight's and tomorrow morning's dose she will be discharged with f lecainide b.i.d., aspirin to control atrial fibrillation. HARIS/BEENA Voice ID: [id number] Report ID: [id number]
--- NOTE | 2017-07-23 17:18 | EKG ---
Test Date: 2017-07-23 Test Time: 08:58:10 Supervisor Burling And Joining: KRANTHI MEASUREMENT RESULTS: Intervals: Rate: 80 OR: 128 QRSD: 88 QT: 380 QTc: 438 [place]: P: 45 OR: 128 QRS: 48 T: 42 INTERPRETIVE STATEMENTS: Normal sinus rhythm Nonspecific ST abnormality Abnormal ECG Compared to ECG 07/22/2017 17:47:09 ST (T wave) deviation now present Sinus arrhythmia no longer present Electronically Signed On 07-23-17 17:17:47 CDT by Aneudy Paredes
[2017-07-23] MEDS: ZOLPIDEM TARTRATE 5 MG TABLET PO PRN (21:00)
[2017-07-24] MEDS: FLECAINIDE 100 MG TAB PO SCH (05:25)
[2017-07-24] MEDS: ASPIRIN EC 81 MG TAB PO SCH (08:50)
--- NOTE | 2017-07-24 10:38 | EKG ---
Test Date: 2017-07-24 Test Time: 07:31:44 Labor Relations Consultant: MARVIN MEASUREMENT RESULTS: Intervals: Rate: 51 CT: 156 QRSD: 96 QT: 454 QTc: 418 [place]: P: 48 CT: 156 QRS: 48 T: 32 INTERPRETIVE STATEMENTS: Sinus bradycardia with sinus arrhythmia Borderline ECG Compared to ECG 07/23/2017 08:58:10 Sinus rhythm no longer present ST (T wave) deviation no longer present Electronically Signed On 07-24-17 10:38:32 CDT by Aneudy Paredes
[2017-07-24 12:40] VITALS: BP 150/79; TEMP 98.4
[2017-07-24 12:58] VITALS: O2SAT 100
--- NOTE | 2017-07-24 13:45 | DS ---
Date of Discharge: 07/24/2017 Discharge Diagnosis: Paroxysmal atrial fibrillation, resolved, maintaining sinus rhythm. Discharge Medications: Flecainide or Tambocor 50 mg twice a day, aspirin 81 mg once per day. Hospital Course: The patient was admitted solely for the reason to be monitored while we initiate an tiarrhythmic drug therapy. She had no complications taking flecainide. The EKG did not show prolong ation of the QRS or QT interval. No proarrhythmic effects. No other side effects associated. She i s discharged home taking aspirin, flecainide in stable condition, trying to prevent episodes of atria l fibrillation. HARIS/BEENA Voice ID: [id number] Report ID: [id number]
== END 2017-07-24 12:39 | disposition home or self-care (01) | DRG 309 ==
LOC: 4TH 15:00
PROVIDERS: ADMIT Internal Medicine; ATTEND Internal Medicine
DX: I48.0 Paroxysmal atrial fibrillation (principal); Z68.41 Body mass index [BMI] 40.0-44.9, adult; E66.9 Obesity, unspecified; Z88.2 Allergy status to sulfonamides; Z98.84 Bariatric surgery status
CPT/HCPCS: 36415; 80048; 81003; 81015; 85025; 87086; 87088; 93005

== ENCOUNTER 2017-08-16 09:19 | Emergency (ER) | payer OTHER ==
[2017-08-16] MEDS ORDERED: NA CHLORIDE 0.9% 1,000 ML ONE (10:07)
--- NOTE | 2017-08-16 10:32 | RAD REPORT ---
EXAM DESCRIPTION: VAS - Extrem Venous W Compress Luis A - 08/16/2017 10:21 am CLINICAL HISTORY: Bilateral leg edema and swelling. COMPARISON: None. TECHNIQUE: Real-time sonographic interrogation of the left and right lower extremity deep venous sys tems was performed. FINDINGS: Normal compressibility, flow augmentation, phasic flow and spontaneous flow is identified in both the left and right lower extremity deep venous systems. IMPRESSION: No sonographic evidence of left or right lower extremity deep venous thrombosis.
[2017-08-16 10:34] LABS: Absolute Lymphocytes (CBC) 1.8 K/uL (0.7-4.9); Absolute Monocytes 0.6 K/uL (0.1-1.3); Absolute Neutrophil 5.6 K/uL (1.8-8.0); Basophils % 1.1 % (0-1.3); Eosinophils % 1.1 % (0-4.4); Hematocrit 41.8 % (36.0-45.0); MCH 28.2 pg (27.0-35.0); MCV 85.5 fL (80-100); Monocytes % 7.5 % (3.3-12.3); RBC Red Blood Cell Count 4.89 M/uL (3.86-4.86)
[2017-08-16 10:36] LABS: Protime INR 1.09
--- NOTE | 2017-08-16 10:36 | RAD REPORT ---
EXAM DESCRIPTION: RAD - Chest Single View - 08/16/2017 10:30 am CLINICAL HISTORY: Chest pain. COMPARISON: 07/12/2016 FINDINGS: Portable technique limits examination quality. The lungs are grossly clear. Cardiac silhouette is mildly prominent. No displaced fractures. IMPRESSION: No acute intrathoracic process suspected.
[2017-08-16 12:14] LABS: Bicarbonate 26 mEq/L (21-31); CKMB Creatine Kinase MB 1.2 ng/ml (0.3-4.0); Glucose Level 93 mg/dL (65-120); Lipase 20 U/L (22-51); Potassium 3.5 mEq/L (3.6-5.0); Sodium Level 138 mEq/L (135-145)
[2017-08-16 12:16] LABS: ALT/SGPT 33 IU/L (10-60); AST/SGOT 23 IU/L (10-42); Albumin 4.1 g/dL (3.2-5.5); BUN Blood Urea Nitrogen 12 mg/dL (6-20); Bilirubin Total 0.4 mg/dL (0.3-1.2); Creatine Phosphokinase 51 IU/L (22-269); Magnesium 1.8 mg/dL (1.8-2.5); Protein, Total 7.7 g/dL (6.0-8.3)
[2017-08-16 12:19] LABS: Alkaline Phosphatase 103 IU/L (42-121)
[2017-08-16 12:20] LABS: Bilirubin Direct 0.1 mg/dL (0-0.2)
[2017-08-16 12:30] LABS: Urine Blood 1+ (NEG); Urine Glucose NEGATIVE (NEG); Urine Protein NEGATIVE (NEG); Urine Specific Gravity <1.005 (1.005-1.030); Urine pH 6.5 (5.0-7.0)
--- NOTE | 2017-08-16 13:01 | RAD REPORT ---
EXAM DESCRIPTION: CT - Chest For Pe Angio - 08/16/2017 12:45 pm CLINICAL HISTORY: Chest pain. Shortness of breath COMPARISON: 05/23/2017 TECHNIQUE: CT angiogram of the pulmonary arteries was performed with MIP. All CT scans are performed using dose optimization technique as appropriate and may include automated exposure control or mA/KV adjustment according to patient size. FINDINGS: No evidence of pulmonary thromboembolism. No acute aortic finding demonstrated. The lungs are clear. No significant pericardial or pleural fluid. No concerning bony finding. Postsurgical changes are present about the stomach. IMPRESSION: No evidence of pulmonary thromboembolism. No acute lung findings.
[2017-08-16] MEDS ORDERED: Mastisol Adhesive Liq ONE (13:23)
[2017-08-16] MEDS ORDERED: ASPIRIN 81 MG CHEWABLE TABLET ONE (13:35)
[2017-08-16] MEDS ORDERED: CEFTRIAXONE/SWI 1gm 1 GM/10 ML SYR ONE (13:36)
[2017-08-16] MEDS ORDERED: POTASSIUM CL SA 10 MEQ TAB PO ONE (13:36)
--- NOTE | 2017-08-16 13:56 | EDPHYS ---
Physician Documentation [facility] Name: Rita Calles Age: 32 yrs Sex: Female : 1985 Arrival Date: 08/16/2017 Time: 09:20 Bed 8 Private MD: ED Physician Kaleb Babb HPI: 08/16 09:50 This 32 yrs old Female presents to ER via Ambulatory with complaints of penny Shortness Of Breath. 09:50 The patient has shortness of breath at rest, with light activity. Onset: The penny symptoms/episode began/occurred 2 day(s) ago. Duration: The symptoms are continuous, and are unchanged since they started. The patient's shortness of breath has no apparent modifying factors. Associated signs and symptoms: The patient has no apparent associated signs or symptoms. Severity of symptoms: At their worst the symptoms were mild in the emergency department the symptoms are unchanged. The patient has not experienced similar symptoms in the past. 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 - Social history:: Smoking status: Patient/guardian denies using tobacco. - Family history:: not pertinent. - Ebola Screening: : No symptoms or risks identified at this time. ROS: 09:50 Constitutional: Negative for fever, chills, and weight loss, Eyes: Negative for injury, penny pain, redness, and discharge, ENT: Negative for injury, pain, and discharge, Neck: Negative for injury, pain, and swelling, Cardiovascular: Negative for chest pain, palpitations, and edema, Abdomen/GI: Negative for abdominal pain, nausea, vomiting, diarrhea, and constipation, Back: Negative for injury and pain, : Negative for injury, bleeding, discharge, and swelling, MS/Extremity: Negative for injury and deformity, Skin: Negative for injury, rash, and discoloration, Neuro: Negative for headache, weakness, numbness, tingling, and seizure, Psych: Negative for depression, anxiety, suicide ideation, homicidal ideation, and hallucinations, Allergy/Immunology: Negative for hives, rash, and allergies, Endocrine: Negative for neck swelling, polydipsia, polyuria, polyphagia, and marked weight changes, Hematologic/Lymphatic: Negative for swollen nodes, abnormal bleeding, and unusual bruising. 09:50 Respiratory: Positive for shortness of breath, at rest. Exam: 09:50 Constitutional: This is a well developed, well nourished patient who is awake, alert, penny and in no acute distress. Head/Face: Normocephalic, atraumatic. Eyes: Pupils equal round and reactive to light, extra-ocular motions intact. Lids and lashes normal. Conjunctiva and sclera are non-icteric and not injected. Cornea within normal limits. Periorbital areas with no swelling, redness, or edema. ENT: Nares patent. No nasal discharge, no septal abnormalities noted. Tympanic membranes are normal and external auditory canals are clear. Oropharynx with no redness, swelling, or masses, exudates, or evidence of obstruction, uvula midline. Mucous membranes moist. Neck: Trachea midline, no thyromegaly or masses palpated, and no cervical lymphadenopathy. Supple, full range of motion without nuchal rigidity, or vertebral point tenderness. No Meningismus. Chest/axilla: Normal chest wall appearance and motion. Nontender with no deformity. No lesions are appreciated. Cardiovascular: Regular rate and rhythm with a normal S1 and S2. No gallops, murmurs, or rubs. Normal PMI, no JVD. No pulse deficits. Respiratory: Lungs have equal breath sounds bilaterally, clear to auscultation and percussion. No rales, rhonchi or wheezes noted. No increased work of breathing, no retractions or nasal flaring. Abdomen/GI: Soft, non-tender, with normal bowel sounds. No distension or tympany. No guarding or rebound. No evidence of tenderness throughout. Back: No spinal tenderness. No costovertebral tenderness. Full range of motion. Female : Normal external genitalia. Skin: Warm, dry with normal turgor. Normal color with no rashes, no lesions, and no evidence of cellulitis. MS/ Extremity: Pulses equal, no cyanosis. Neurovascular intact. Full, normal range of motion. Neuro: Awake and alert, GCS 15, oriented to person, place, time, and situation. Cranial nerves II-XII grossly intact. Motor strength 5/5 in all extremities. Sensory grossly intact. Cerebellar exam normal. Normal gait. Psych: Awake, alert, with orientation to person, place and time. Behavior, mood, and affect are within normal limits. Vital Signs: 09:36 BP 135 / 67; Pulse 83; Resp 18; Temp 97.5; Pulse Ox 100% on R/A; ph 10:59 BP 122 / 66; Pulse 54; Resp 18; Pulse Ox 100% on R/A; ph 12:00 BP 128 / 62; Pulse 57; Resp 18; Pulse Ox 99% on R/A; ph 12:58 BP 134 / 57; Pulse 60; Resp 18; Pulse Ox 98% on R/A; ph 14:30 BP 127 / 58; Pulse 59; Resp 18; Temp 98.0(TE); Pulse Ox 99% on R/A; ph MDM: 09:27 Patient medically screened. [facility] 09:52 Data reviewed: vital signs, nurses notes, lab test result(s), EKG, radiologic studies, [facility] CT scan, doppler, plain films. 08/16 09:49 Order name: Basic Metabolic Panel; Complete Time: 12:55 [facility] 08/16 09:49 Order name: BNP; Complete Time: 11:02 [facility] 08/16 09:49 Order name: CBC with Diff; Complete Time: 11:02 [facility] 08/16 09:49 Order name: Ckmb; Complete Time: 12:55 [facility] 08/16 09:49 Order name: CPK; Complete Time: 12:55 [facility] 08/16 09:49 Order name: LFT's; Complete Time: 12:55 [facility] 08/16 09:49 Order name: Magnesium; Complete Time: 12:55 [facility] 08/16 09:49 Order name: PT-INR; Complete Time: 11:02 [facility] 08/16 09:49 Order name: Ptt, Activated; Complete Time: 11:02 [facility] 08/16 09:49 Order name: Troponin (emerg Dept Use Only); Complete Time: 11:02 [facility] 08/16 09:50 Order name: Lipase; Complete Time: 12:55 [facility] 08/16 09:50 Order name: Urine Culture [facility] 08/16 12:05 Order name: Urine Dipstick--Ancillary (enter results); Complete Time: 12:55 ag 08/16 12:05 Order name: Urine --Ancillary (enter results); Complete Time: 12:55 08/16 09:49 Order name: Urine Test (obtain specimen); Complete Time: 13:38 [facility] 08/16 09:49 Order name: XRAY Chest (1 view); Complete Time: 11:02 [facility] 08/16 09:49 Order name: EKG; Complete Time: 09:49 [facility] 08/16 09:49 Order name: Cardiac monitoring; Complete Time: 09:56 [facility] 08/16 09:49 Order name: EKG - Nurse/Tech; Complete Time: 13:38 [facility] 08/16 09:49 Order name: IV Saline Lock; Complete Time: 09:56 [facility] 08/16 09:49 Order name: US Extremity Venous W Compression Luis A; Complete Time: 11:02 [facility] 08/16 09:49 Order name: CT Chest For PE Angio; Complete Time: 13:07 [facility] 08/16 12:07 Order name: Test, Serum; Complete Time: 13:07 [facility] 08/16 13:07 Order name: Ckmb; Complete Time: 13:55 [facility] 08/16 13:07 Order name: Creatine Phosphokinase; Complete Time: 13:55 [facility] 08/16 13:07 Order name: Troponin (emerg Dept Use Only); Complete Time: 13:55 [facility] 08/16 09:49 Order name: Labs collected and sent; Complete Time: 09:56 [facility] 08/16 09:49 Order name: O2 Per Protocol; Complete Time: 09:56 [facility] 08/16 09:49 Order name: O2 Sat Monitoring; Complete Time: 09:56 [facility] 08/16 09:49 Order name: Urine Dipstick-Ancillary (obtain specimen); Complete Time: 11:47 [facility] 08/16 13:07 Order name: Repeat Cardiac Enzymes at; Complete Time: 13:29 [facility] Administered Medications: 10:45 Drug: NS 0.9% 1000 ml Route: IV; Rate: 1 bolus; Site: right antecubital; ph 13:00 Follow up: Response: No adverse reaction; IV Status: Completed infusion ph 13:37 Drug: Potassium Chloride 20 mEq Route: PO; ph 14:00 Follow up: Response: No adverse reaction ph 13:37 Drug: Aspirin 81 mg Route: PO; ph 14:00 Follow up: Response: No adverse reaction ph 13:38 Drug: Rocephin - (cefTRIAXone) 1 grams Route: IVPB; Infused Over: 30 mins; Site: right ph antecubital; 14:00 Follow up: Response: No adverse reaction; IV Status: Completed infusion ph Disposition: 08/16/17 13:55 Discharged to Home. Impression: Dyspnea, Palpitations, Obesity, unspecified, Cystitis, Hypokalemia. - Condition is Stable. - Discharge Instructions: Atrial Fibrillation, Dysuria, Obesity, Palpitations, Aspirin and Your Heart, Palpitations, Faey-vb-Urfs, Obesity, [id number]. - Prescriptions for Cipro 250 mg Oral Tablet - take 1 tablet by ORAL route every 12 hours; 10 tablet. - Medication Reconciliation Form, Thank You Letter, Antibiotic Education, Prescription Opioid Use, Work release form form. - Follow up: Private Physician; When: 2 - 3 days; Reason: Recheck today's complaints, Continuance of care, Re-evaluation by your physician. Follow up: Josiah Stephens MD; When: 2 - 3 days; Reason: Recheck today's complaints, Re-evaluation by your physician. - Problem is new. - Symptoms have improved. Signatures: Dispatcher [employer] EDMS Kaleb Babb MD MD cha Smirch, Shelby, RN RN Ayla Jones RN RN Corrections: (The following items were deleted from the chart) 13:56 13:55 08/16/2017 13:55 Discharged to Home. Impression: Dyspnea; Palpitations; Obesity, penny unspecified; Cystitis; Hypokalemia. Condition is Stable. Discharge Instructions: Atrial Fibrillation, Obesity, Palpitations, Aspirin and Your Heart, Palpitations, [id number], Obesity, Mveq-ob-Qftg, Dysuria. Prescriptions for Cipro 250 mg Oral Tablet - take 1 tablet by ORAL route every 12 hours; 10 tablet. and Forms are Medication Reconciliation Form, Thank You Letter, Antibiotic Education, Prescription Opioid Use. Follow up: Private Physician; When: 2 - 3 days; Reason: Recheck today's complaints, Continuance of care, Re-evaluation by your physician. Problem is new. Symptoms have improved. [facility] 15:10 13:56 08/16/2017 13:55 Discharged to Home. Impression: Dyspnea; Palpitations; Obesity, ss unspecified; Cystitis; Hypokalemia. Condition is Stable. Discharge Instructions: Atrial Fibrillation, Obesity, Palpitations, Aspirin and Your Heart, Palpitations, Lcal-bc-Avjl, Obesity, Rsxw-it-[id number], Dysuria. Prescriptions for Cipro 250 mg Oral Tablet - take 1 tablet by ORAL route every 12 hours; 10 tablet. and Forms are Medication Reconciliation Form, Thank You Letter, Antibiotic Education, Prescription Opioid Use. Follow up: Private Physician; When: 2 - 3 days; Reason: Recheck today's complaints, Continuance of care, Re-evaluation by your physician. Follow up: Josiah Stephens; When: 2 - 3 days; Reason: Recheck today's complaints, Re-evaluation by your physician. Problem is new. Symptoms have improved. penny
--- NOTE | 2017-08-16 13:56 | ER ---
Nurse's Notes [facility] Name: Rita Calles Age: 32 yrs Sex: Female : 1985 Arrival Date: 08/16/2017 Time: 09:20 Bed 8 Private MD: Diagnosis: Dyspnea;Palpitations;Obesity, unspecified;Cystitis;Hypokalemia Presentation: 08/16 09:33 Presenting complaint: Patient states: " I was at work when I got SOB all of a sudden, I ph felt dizzy when it happened too." Pt denies symptoms at this time, also reports chest pressure and nausea when episode occurred, reports hx of A-fib, denies palpitations. Transition of care: patient was not received from another setting of care. Onset of symptoms was August 16, 2017. Risk Assessment: Do you want to hurt yourself or someone else? Patient reports no desire to harm self or others. Initial Sepsis Screen: Does the patient meet any 2 criteria? No. Patient's initial sepsis screen is negative. Does the patient have a suspected source of infection? No. Patient's initial sepsis screen is negative. Care prior to arrival: None. 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 - Social history:: Smoking status: Patient/guardian denies using tobacco. - Family history:: not pertinent. - Ebola Screening: : No symptoms or risks identified at this time. Screenin:52 Abuse screen: Denies threats or abuse. Denies injuries from another. Nutritional ph screening: No deficits noted. Tuberculosis screening: No symptoms or risk factors identified. Fall Risk None identified. Assessment: 09:53 General: Appears in no apparent distress. comfortable, obese, well groomed, Behavior is ph calm, cooperative, appropriate for age, Denies fever, feeling ill. Pain: Denies pain. Neuro: Level of Consciousness is awake, alert, obeys commands, Oriented to person, place, time, situation. Cardiovascular: Reports lightheadedness, nausea, shortness of breath, Denies diaphoresis, palpitations, vomiting, Capillary refill < 3 seconds in bilateral fingers Patient's skin is warm and dry. Rhythm is atrial fibrillation Chest pain quality is heaviness. Respiratory: Reports intermittent episodes of SOB Airway is patent Respiratory effort is even, unlabored, Respiratory pattern is regular, symmetrical, Breath sounds are clear bilaterally. GI: No signs and/or symptoms were reported involving the gastrointestinal system. Derm: Skin is intact, is healthy with good turgor, Skin is pink, warm \\T\\ dry. Musculoskeletal: Circulation, motion, and sensation intact. Range of motion: intact in all extremities. 11:00 Reassessment: Patient appears in no apparent distress at this time. No changes from ph previously documented assessment. Patient and/or family updated on plan of care and expected duration. Pain level reassessed. Patient is alert, oriented x 3, equal unlabored respirations, skin warm/dry/pink. 12:00 Reassessment: Patient appears in no apparent distress at this time. Patient and/or ph family updated on plan of care and expected duration. Pain level reassessed. Patient is alert, oriented x 3, equal unlabored respirations, skin warm/dry/pink. Pt resting quietly, VSS, awaiting lab results and CT scan, VSS. 12:56 Reassessment: Patient appears in no apparent distress at this time. Patient and/or ph family updated on plan of care and expected duration. Pain level reassessed. Patient is alert, oriented x 3, equal unlabored respirations, skin warm/dry/pink. Pt resting quietly, awaiting CT results, denies SOB at this time. 14:30 Reassessment: Patient appears in no apparent distress at this time. Patient and/or ph family updated on plan of care and expected duration. Pain level reassessed. Patient is alert, oriented x 3, equal unlabored respirations, skin warm/dry/pink. Pt resting quietly, awaiting discharge. Vital Signs: 09:36 BP 135 / 67; Pulse 83; Resp 18; Temp 97.5; Pulse Ox 100% on R/A; ph 10:59 BP 122 / 66; Pulse 54; Resp 18; Pulse Ox 100% on R/A; ph 12:00 BP 128 / 62; Pulse 57; Resp 18; Pulse Ox 99% on R/A; ph 12:58 BP 134 / 57; Pulse 60; Resp 18; Pulse Ox 98% on R/A; ph 14:30 BP 127 / 58; Pulse 59; Resp 18; Temp 98.0(TE); Pulse Ox 99% on R/A; ph ED Course: 09:20 Patient arrived in ED. as 09:27 Kaleb Babb MD is Attending Physician. penny 09:33 Ayla Jones, RANGEL is Primary Nurse. ph 09:36 Triage completed. ph 09:52 Arm band placed on. ph 09:53 Patient has correct armband on for positive identification. Bed in low position. Call ph light in reach. Side rails up X 1. quality assurance monitor body on. Pulse ox on. NIBP on. Warm blanket given. 09:55 Inserted saline lock: 20 gauge in right antecubital area, using aseptic technique. ph Blood collected. 10:02 Patient taken to ultrasound. via stretcher. aa4 10:14 US Extremity Venous W Compression Luis A In Process Unspecified. EDMS 10:22 Ultrasound completed. Patient tolerated well. Patient moved back from ultrasound. aa4 10:28 X-ray completed. Portable x-ray completed in exam room. jb2 10:30 XRAY Chest (1 view) In Process Unspecified. EDMS 10:41 EKG done, by civil cadd technician. reviewed by Kaleb Babb MD. at1 11:05 Radiology exam delayed due to lab results not completed at this time. (BUN/Creatinine). eh 12:[address] via wheelchair. sw 12:45 CT completed. Patient tolerated procedure well. Patient moved back from CT. sw 12:45 CT Chest For PE Angio In Process Unspecified. EDMS 13:56 Josiah Stephens MD is Referral Physician. penny 15:00 No provider procedures requiring assistance completed. IV discontinued, intact, ph bleeding controlled, No redness/swelling at site. Pressure dressing applied. Administered Medications: 10:45 Drug: NS 0.9% 1000 ml Route: IV; Rate: 1 bolus; Site: right antecubital; ph 13:00 Follow up: Response: No adverse reaction; IV Status: Completed infusion ph 13:37 Drug: Potassium Chloride 20 mEq Route: PO; ph 14:00 Follow up: Response: No adverse reaction ph 13:37 Drug: Aspirin 81 mg Route: PO; ph 14:00 Follow up: Response: No adverse reaction ph 13:38 Drug: Rocephin - (cefTRIAXone) 1 grams Route: IVPB; Infused Over: 30 mins; Site: right ph antecubital; 14:00 Follow up: Response: No adverse reaction; IV Status: Completed infusion ph Outcome: 13:55 Discharge ordered by . penny 15:10 Patient left the ED. 15:10 Discharged to home ambulatory, with significant other. ph 15:10 Condition: good 15:10 Discharge instructions given to patient, Instructed on discharge instructions, follow up and referral plans. Demonstrated understanding of instructions, follow-up care. Signatures: Dispatcher [employer] EDMS Kaleb Babb MD MD cha Buechter, Endy jb2 Sirena, Eleanor Venegas Amanda aa4 Maddi Pa RN RN Brissa chopra, tapper operator EKG Tat1 Ayla Jones RN RN Sophia Cameron Corrections: (The following items were deleted from the chart) 10:22 10:02 Patient taken to ultrasound. via wheelchair. aa4 aa4
--- NOTE | 2017-08-16 14:41 | EKG ---
Test Date: 2017-08-16 Test Time: 10:32:06 Warehouser: ALEXIA MEASUREMENT RESULTS: Intervals: Rate: 51 OK: 156 QRSD: 98 QT: 450 QTc: 414 Ida: P: 40 OK: 156 QRS: 34 T: 43 INTERPRETIVE STATEMENTS: Sinus bradycardia with sinus arrhythmia Cannot rule out Anterior infarct, age undetermined Abnormal ECG Compared to ECG 07/24/2017 07:31:44 Myocardial infarct finding now present Electronically Signed On 08-16-17 14:39:58 CDT by Josiah Stephens
[2017-08-16 15:20] VITALS: TEMP 97.5
[2017-08-16 15:24] VITALS: BP 134/57; O2SAT 98
== END 2017-08-16 15:10 | disposition home or self-care (01) ==
LOC: ER 09:19
DX: R00.2 Palpitations (principal); N30.90 Cystitis, unspecified without hematuria; E87.6 Hypokalemia; E66.9 Obesity, unspecified; I48.91 Unspecified atrial fibrillation; Z79.82 Long term (current) use of aspirin; Z88.2 Allergy status to sulfonamides
CPT/HCPCS: 36415; 71045; 71275; 80048; 80076; 81003; 81025; 82550; 82553; 83690; 83735; 83880; 84484; 84703; 85025; 85610; 85730; 87086; 87088; 93005; 93970; 96361; 96365; 99285; J0696; J7030; Q9967

== ENCOUNTER 2020-10-24 12:55 | Emergency (ER) | payer OTHER ==
--- NOTE | 2020-10-24 13:27 | ER ---
Nurse's Notes [facility] Name: Rita Ortega Age: 35 yrs Sex: Female : 1985 Arrival Date: 10/24/2020 Time: 12:56 Bed Waiting Private MD: Diagnosis: Presentation: 10/24 13:14 Chief complaint: Patient states: Pt stated, "My heart is doing acrobatics. My pulse got kg up to 135 and sustained for 15 mins. Sometimes it happens but never last that long. ". Coronavirus screen: Client denies travel out of the [place] in the last 14 days. At this time, unable to obtain information related to travel outside the [place] Client presents with at least one sign or symptom that may indicate coronavirus-19. Ebola Screen: Patient negative for fever greater than or equal to 101.5 degrees Fahrenheit, and additional compatible Ebola Virus Disease symptoms Patient denies exposure to infectious person. Patient denies travel to an Ebola-affected area in the 21 days before illness onset. Initial Sepsis Screen: Does the patient meet any 2 criteria? No. Patient's initial sepsis screen is negative. Does the patient have a suspected source of infection? No. Patient's initial sepsis screen is negative. Risk Assessment: Do you want to hurt yourself or someone else? Patient reports no desire to harm self or others. Onset of symptoms was October 24, 2020 at 11:30. 13:14 Method Of Arrival: Ambulatory kg 13:16 Acuity: NATALY 3 kg Triage Assessment: 13:17 General: Appears in no apparent distress. Behavior is calm, cooperative, appropriate kg for age, quiet, Smells of. Pain: Complains of pain in face Pain currently is 6 out of 10 on a pain scale. at worst was 6 out of 10 on a pain scale. level that patient reports is acceptable is 3 out of 10 on a pain scale. 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 - Social history:: Smoking status: Patient denies any tobacco usage or history of. Patient uses. Screenin:25 Abuse screen: Denies threats or abuse. Denies injuries from another. Nutritional kg screening: No deficits noted. Tuberculosis screening: No symptoms or risk factors identified. Fall Risk None identified. Assessment: :26 Reassessment: After pt received her EKG and it was normal she stated she feels better kg and is going to go home since she has an appointment with her Hand Etcher Helper on Tuesday. She stated if she feels bad later she will come back. Vital Signs: 13:14 Pulse 101; Resp 20; Temp 98.3(TE); Pulse Ox 96% on R/A; Weight 158.76 kg (R); Height 5 kg ft. 9 in. (175.26 cm) (R); Pain 6/10; 13:16 BP 126 / 78; kg 13:14 Body Mass Index 51.69 (158.76 kg, 175.26 cm) kg ED Course: 12:56 Patient arrived in ED. am2 13:17 Triage completed. kg 13:17 Arm band placed on right wrist. kg 13:25 Patient has correct armband on for positive identification. kg 13:25 No provider procedures requiring assistance completed. kg Administered Medications: No medications were administered Outcome: 13:26 Patient left the ED. kg Signatures: Brissa Akers am2 Angeles Vega, RN RN kg
[2020-10-24 13:34] VITALS: TEMP 98.3; O2SAT 96
[2020-10-24 13:35] VITALS: BP 126/78
== END 2020-10-24 13:26 | disposition left against medical advice (07) ==
LOC: ER 12:55
DX: Z53.21 Procedure and treatment not carried out due to patient leaving prior to being seen by health care provider (principal)
CPT/HCPCS: 93005; 99281

== ENCOUNTER 2023-06-02 20:41 | Emergency (ER) | payer OTHER ==
--- NOTE | 2023-06-02 21:16 | EDPHYS ---
Physician Documentation [facility] Name: Rita Ortega Age: 38 yrs Sex: Female : 1985 Arrival Date: 06/02/2023 Time: 20:41 Bed IW2 Private MD: ED Physician Michael Eason HPI: 06/01 21:05 This 38 yrs old Female presents to ER via Ambulatory with complaints of mouth sp4 abscess. 21:16 Patient presents with acute dental abscess right lower gingiva next to the tooth #30.. sp4 Tooth #30 has large cavity that has been present for extended period of time. Patient states she also developed sore throat and worsening drainage from the dental abscess right lower gingival location. She was advised to come here by telemedicine doctor. . 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 - Social history:: Smoking status: Patient denies any tobacco usage or history of. Patient/guardian denies using alcohol, street drugs, IV drugs. - Family history:: not pertinent. ROS: 21:16 Constitutional: Negative for fever, chills, and weight loss, positive dental pain, sp4 positive gingival pain, positive dental cavity, positive dental abscess, positive sore throat. 21:16 All other systems are negative, Exam: 21:16 Constitutional: This is a well developed, well nourished patient who is awake, alert, sp4 and in no acute distress. Head/Face: Normocephalic, atraumatic. Eyes: Pupils equal round and reactive to light, extra-ocular motions intact. Lids and lashes normal. Conjunctiva and sclera are not injected. Cornea within normal limits. Periorbital areas with no swelling, redness, or edema. ENT: Nares patent. No nasal discharge, no septal abnormalities noted. Tympanic membranes are normal and external auditory canals are clear. Oropharynx with no redness, swelling, or masses, exudates, or evidence of obstruction, uvula midline. Mucous membranes moist. There is large cavity tooth #30 associated dental abscess associated signs of pulpitis associated abscess on the buccal side with drainage of purulent debris, also associated periodontal disease Neck: Trachea midline, no thyromegaly or masses palpated, and no cervical lymphadenopathy. Supple, full range of motion without nuchal rigidity, or vertebral point tenderness. Chest/axilla: Normal chest wall appearance and motion. Nontender with no deformity. No lesions are appreciated. Cardiovascular: Regular rate and rhythm with a normal S1 and S2. No gallops, murmurs, or rubs. Normal PMI, no JVD. No pulse deficits. Respiratory: Lungs have equal breath sounds bilaterally, clear to auscultation and percussion. No rales, rhonchi or wheezes noted. No increased work of breathing, no retractions or nasal flaring. Abdomen/GI: Soft, with normal bowel sounds. No distension or tympany. No guarding or rebound. No evidence of tenderness throughout. Back: No spinal tenderness. No costovertebral tenderness. Skin: Warm, dry with normal turgor. Normal color with no rashes, no lesions, and no evidence of cellulitis. MS/ Extremity: Pulses equal, no cyanosis. Neurovascular intact. Full, normal range of motion. Neuro: Awake and alert, GCS 15, oriented to person, place, time, and situation. Cranial nerves II-XII grossly intact. Motor strength 5/5 in all extremities. Sensory grossly intact. Psych: Awake, alert, with orientation to person, place and time. Behavior, mood, and affect are within normal limits Vital Signs: 20:58 BP 142 / 94; Pulse 84; Resp 16; Temp 97.7; Pulse Ox 98% ; Weight 183.7 kg; Height 5 ft. jj7 9 in. ; Pain 0/10; 20:58 Body Mass Index 59.81 (183.70 kg, 175.26 cm) jj7 20:58 Pain Scale: Adult jj7 MDM: 21:11 Patient medically screened. sp4 21:21 Differential Diagnosis altered mental status, Dental abscess, dental pain, pulpitis. sp4 Data reviewed: vital signs, nurses notes. ED course: Patient will be discharged with p.o. cephalexin for the next 10 days. Advised to see dentist or oral surgeon for dental extraction tooth #30. . Administered Medications: 21:22 Drug: Rocephin (cefTRIAXone) IM 1 grams IM once Route: IM; Site: right deltoid; jj7 21:28 Follow up: Response: No adverse reaction jj7 Disposition Summary: 06/02/23 21:14 Discharge Ordered Problem: new sp4 Symptoms: have improved sp4 Condition: Stable sp4 Diagnosis - Acute right lower gingival abscess, acute pulpitis tooth number # 30 , acute sp4 gingivitis, acute pharyngitis Followup: sp4 - With: Private Physician - When: 5 - 6 days - Reason: Recheck today's complaints Discharge Instructions: - Discharge Summary Sheet sp4 - Dental Abscess sp4 Forms: - Patient Portal Instructions sp4 Prescriptions: - Cephalexin 500 mg Oral Capsule - take 1 capsule ORAL route every 6 hours for 10 days; 40 capsule; Refills: 0, sp4 Product Selection Permitted Signatures: Abebe Melgoza RN RN jj7 Michael Eason MD MD sp4
--- NOTE | 2023-06-02 21:16 | ER ---
Nurse's Notes [facility] Name: Rita Ortega Age: 38 yrs Sex: Female : 1985 Arrival Date: 06/02/2023 Time: 20:41 Bed IW2 Private MD: Diagnosis: Acute right lower gingival abscess, acute pulpitis tooth number # 30 , acute gingivitis, acute pharyngitis Presentation: 06/01 20:58 Chief complaint: Patient states: HAS AN ABSCESS IN HER MOUTH. STATES NOW HER THROAT IS jj7 HURTING. DID A TELE HEALTH VISIT AND THEY TOLD HER TO GO GET IT CHECKED OUT TO MAKE SURE IT DID NOT SPREAD. Coronavirus screen: At this time, the client does not indicate any symptoms associated with coronavirus-19. Ebola Screen: No symptoms or risks identified at this time. Initial Sepsis Screen: Does the patient meet any 2 criteria? No. Patient's initial sepsis screen is negative. Does the patient have a suspected source of infection? No. Patient's initial sepsis screen is negative. Risk Assessment: Do you want to hurt yourself or someone else? Patient reports no desire to harm self or others. 20:58 Method Of Arrival: Ambulatory [facility] 20:58 Acuity: NATALY 4 jj7 Triage Assessment: 21:02 General: Appears in no apparent distress. comfortable, Behavior is calm, cooperative, jj7 appropriate for age. Pain: Denies pain. EENT: Reports MOUTH ABSCESS AND THROAT PAIN. [employer]ATE: 21:02 LMP 05/04/2023, unknown jj7 Historical: - Allergies: 21:02 Sulfa (Sulfonamide Antibiotics); jj7 - PMHx: 21:02 Atrial Fib; Hypertensive disorder; jj7 - PSHx: 21:02 section; gastric sleeve; jj7 - Immunization history:: Adult Immunizations up to date, Client reports receiving the 2nd dose of the Covid vaccine, Flu vaccine is not up to date. - Social history:: Smoking status: Patient denies any tobacco usage or history of. Patient/guardian denies using alcohol, street drugs, IV drugs. - Family history:: not pertinent. Screenin:03 [facility] ED Fall Risk Assessment (Adult) History of falling in the last 3 months, jj7 including since admission No falls in past 3 months (0 pts) Confusion or Disorientation No (0 pts) Intoxicated or Sedated No (0 pts) Impaired Gait No (0 pts) Mobility Assist Device Used No (0 pt) Altered Elimination No (0 pt) Score/Fall Risk Level 0 - 2 = Low Risk Oriented to surroundings, Maintained a safe environment, Educated pt \T\ family on fall prevention, incl call for assistance when getting out of bed. Abuse screen: Denies threats or abuse. Nutritional screening: No deficits noted. Tuberculosis screening: No symptoms or risk factors identified. Vital Signs: 20:58 BP 142 / 94; Pulse 84; Resp 16; Temp 97.7; Pulse Ox 98% ; Weight 183.7 kg; Height 5 ft. jj7 9 in. ; Pain 0/10; 20:58 Body Mass Index 59.81 (183.70 kg, 175.26 cm) jj7 20:58 Pain Scale: Adult j7 ED Course: 20:47 Patient arrived in ED. rg4 21:01 Triage completed. jj7 21:02 Arm band placed on right wrist. jj7 21:05 Michael Eason MD is Attending Physician. sp4 21:27 No provider procedures requiring assistance completed. Patient did not have IV access jj7 during this emergency room visit. 21:28 Patient has correct armband on for positive identification. Provided Education on: jj7 ANTIBIOTICS. Administered Medications: 21:22 Drug: Rocephin (cefTRIAXone) IM 1 grams IM once Route: IM; Site: right deltoid; jj7 21:28 Follow up: Response: No adverse reaction jj7 Medication: 21:28 VIS not applicable for this client. jj7 Outcome: 21:14 Discharge ordered by . sp4 21:27 Discharged to home ambulatory, jj7 21:27 Condition: good 21:27 Discharge instructions given to patient, Instructed on discharge instructions, medication usage, Demonstrated understanding of instructions, medications, Prescriptions given X 1, 21:29 Patient left the ED. jj7 Signatures: Mary Lehman rg4 Abebe Melgoza RN RN jj7 Michael Eason MD MD sp4
[2023-06-02] MEDS ORDERED: LIDOCAINE 1% MPF 5 ML VIAL ONE (21:21)
[2023-06-02] MEDS ORDERED: CEFTRIAXONE 1000 MG/VIAL ONE (21:21)
[2023-06-02 21:35] VITALS: BP 142/94; TEMP 97.7; O2SAT 98
== END 2023-06-02 21:29 | disposition home or self-care (01) ==
LOC: ER 20:41
DX: K05.20 Aggressive periodontitis, unspecified (principal); K04.01 Reversible pulpitis; K05.00 Acute gingivitis, plaque induced; J02.9 Acute pharyngitis, unspecified; Z88.2 Allergy status to sulfonamides
CPT/HCPCS: 96372; 99284; J2001; J0696

== ENCOUNTER 2023-11-13 09:09 | Emergency (ER) | payer OTHER ==
[2023-11-13] MEDS ORDERED: METOCLOPRAMIDE 10 MG/2mL INJ ONE (09:50)
[2023-11-13] MEDS ORDERED: DIPHENHYDRAMINE 50 MG/ML VIAL ONE (09:50)
[2023-11-13] MEDS ORDERED: MECLIZINE HCL 12.5 MG TAB ONE (09:50)
[2023-11-13] MEDS ORDERED: NA CHLORIDE 0.9% 1,000 ML ONE (09:50)
[2023-11-13] MEDS ORDERED: NA CHLORIDE 0.9% 50 ML ONE (09:51)
[2023-11-13 10:31] LABS: Absolute Basophils 0.1 K/uL (0-0.5); Absolute Eosinophils 0.2 K/uL (0-0.5); Absolute Monocytes 0.5 K/uL (0.1-1.3); Absolute Neutrophil 4.6 K/uL (1.8-8.0); Basophils % 0.9 % (0-1.3); Eosinophils % 2.1 % (0-4.4); Hematocrit 38.1 % (36.0-45.0); Hemoglobin 12.1 g/dL (12.0-15.0); Lymphocytes % 27.6 % (15.3-44.8); MCH 26.3 pg (27.0-35.0); MCHC 31.8 g/dL (32.0-36.0); MCV 82.6 fL (80-100); MPV 8.1 fL (7.6-11.3); Monocytes % 6.3 % (3.3-12.3); Neutrophils % 63.1 % (41.7-73.7); Platelets 338 thou/uL (152-406); RBC Red Blood Cell Count 4.62 M/uL (3.86-4.86)
[2023-11-13 10:43] LABS: ALT/SGPT 22 U/L (13-56); Albumin 2.8 g/dL (3.4-5.0); Albumin/Globulin Ratio 0.7 (1.1-1.8); Alkaline Phosphatase 94 U/L (45-117); Anion Gap 8.5 mEq/L (5.0-15.0); BUN Blood Urea Nitrogen 11 mg/dL (7-18); Bicarbonate 25 mEq/L (21-32); Bilirubin Total 0.4 mg/dL (0.2-1.0); Glomerular Filtration Rate 117 ml/min (=/>90); Glucose Level 94 mg/dL (74-106); Magnesium 1.9 mg/dL (1.6-2.4); Potassium 3.5 mEq/L (3.5-5.1); Protein, Total 6.8 g/dL (6.4-8.2); Sodium Level 138 mEq/L (136-145); Troponin High Sensitivity 3.5 pg/mL (<58.9)
[2023-11-13 10:46] LABS: AST/SGOT < 10 U/L (15-37); Bilirubin Direct < 0.2 mg/dL (0-0.2); Bilirubin Indirect, Calculated 0.2 mg/dL (0.2-0.8)
--- NOTE | 2023-11-13 10:48 | RAD REPORT ---
EXAM DESCRIPTION: RAD - Chest Single View - 11/13/2023 10:11 am CLINICAL HISTORY: dizziness Chest pain. COMPARISON: Chest Single View dated 08/16/2017; Chest Single View dated 05/22/2017; Chest Pa And Lat ( 2 Views) dated 07/12/2016; Chest Single View dated 08/06/2015 FINDINGS: Portable technique limits examination quality. The lungs are grossly clear. The heart is mildly prominent. No displaced fractures. IMPRESSION: No acute intrathoracic process suspected.
[2023-11-13] MEDS ORDERED: Magnesium Sulfate 2gm IVPB 2 G/50 ML BAG IV ONE (12:05)
--- NOTE | 2023-11-13 15:14 | EDPHYS ---
Physician Documentation [facility] Name: Rita Ortega Age: 38 yrs Sex: Female : 1985 Arrival Date: 11/13/2023 Time: 09: Bed 5 Private MD: ED Physician Garfield Cobb HPI: 11/12 09:49 This 38 yrs old Female presents to ER via Ambulatory with complaints of Headache, rt Dizziness. 09:49 Patient presents to the ED with about 3 days of headache, dizziness. Patient stated rt that she was walking 3 days ago when she developed tunnel vision. She subsequently became lightheaded. Denies any nausea when that occurred. Patient states that since then, when she turns her head, she gets a sensation that she is "drunk" and feels that the room is spinning. The symptoms have been intermittent. She states that she also developed a frontal headache, also intermittent. Symptoms are moderate in severity, no other aggravating or elevating factors.. Historical: - Allergies: 09:19 Sulfa (Sulfonamide Antibiotics); ph - PMHx: 09:19 Atrial Fib; Hypertensive disorder; ph - PSHx: 09:19 section; gastric sleeve; ph - Immunization history:: Adult Immunizations unknown. - Infectious Disease History:: Denies. - Social history:: Smoking status: Reported history of juuling and/or vaping. - Family history:: not pertinent. ROS: 09:49 Constitutional: Negative for fever, chills, and weight loss, Cardiovascular: Negative rt for chest pain, palpitations, and edema, Respiratory: Negative for shortness of breath, cough, wheezing, and pleuritic chest pain, Abdomen/GI: Negative for abdominal pain, nausea, vomiting, diarrhea, and constipation, Skin: Negative for injury, rash, and discoloration, Psych: Negative for depression, anxiety, suicide ideation, homicidal ideation, and hallucinations, 09:49 Neuro: Positive for dizziness, headache, Exam: 09:49 Eyes: Extraocular muscles intact, about 2 beats of left going nystagmus, head impulse rt and test of skew negative, no visual field deficits. 09:49 ENT: Right TM effusion, left TM is clear. 09:49 Neuro: Speech normal, cranial nerves II through XII intact, strength and sensation intact in upper lower extremities, no ataxia on [id number], 09:51 Constitutional: This is a well developed, well nourished patient who is awake, alert, rt and in no acute distress. Head/Face: Normocephalic, atraumatic. Chest/axilla: Normal chest wall appearance and motion. Nontender with no deformity. No lesions are appreciated. Cardiovascular: Regular rate and rhythm with a normal S1 and S2. No gallops, murmurs, or rubs. Normal PMI, no JVD. No pulse deficits. Respiratory: Lungs have equal breath sounds bilaterally, clear to auscultation and percussion. No rales, rhonchi or wheezes noted. No increased work of breathing, no retractions or nasal flaring. Abdomen/GI: Soft, non-tender, with normal bowel sounds. No distension or tympany. No guarding or rebound. No evidence of tenderness throughout. Skin: Warm, dry with normal turgor. Normal color with no rashes, no lesions, and no evidence of cellulitis. 10:27 ECG was reviewed by the Attending Physician. rt Vital Signs: 09:21 BP 170 / 79; Pulse 88; Resp 18; Temp 98.8(O); Pulse Ox 100% on R/A; Weight 181.44 kg; hb Height 5 ft. 9 in. ; Pain 8/10; 11:00 Weight 195 kg (M); hb 12:28 BP 140 / 78; Pulse 63; Resp 18; Pulse Ox 98% on R/A; ph 13:00 BP 135 / 68; Pulse 70; Resp 16; Pulse Ox 97% ; db 15:00 BP 168 / 82; Pulse 76; Resp 16; Pulse Ox 98% on R/A; db 09:21 Body Mass Index 59.07 (195.00 kg, 175.26 cm) hb 09:21 Pain Scale: Adult hb MDM: 09:29 Patient medically screened. rt 17:33 Differential diagnosis: Peripheral vertigo, central vertigo, migraine, near syncope, rt TIA, dysrhythmia. Data reviewed: vital signs, nurses notes, lab test result(s), EKG, radiologic studies. Consideration of Admission/Observation Escalation of care including admission/observation considered. Discussed admission with the patient. Patient understands that the posterior CVA has not been completely ruled out. Informed her of CT findings, states that she feels much better, wishes to go home and follow-up as an outpatient. Show return precautions were discussed.. I considered the following discharge prescriptions or medication management in the emergency department Medications were administered in the Emergency Department. See MAR. Independent interpretation of the following test(s) in the Emergency Department X-Ray: My interpretation is No infiltrate seen on interpretation of x-ray images. Care significantly affected by the following chronic conditions: Atrial fibrillation. Counseling: I had a detailed discussion with the patient and/or guardian regarding the historical points, exam findings, and any diagnostic results supporting the discharge/admit diagnosis, lab results, radiology results, the need for outpatient follow up, to return to the emergency department if symptoms worsen or persist or if there are any questions or concerns that arise at home. Response to treatment: the patient's symptoms have resolved after treatment. 11/12 09:39 Order name: Basic Metabolic Panel; Complete Time: 11:00 rt 11/12 09:39 Order name: CBC with Diff; Complete Time: 11:00 rt 11/12 09:39 Order name: LFT's; Complete Time: 11:00 rt 11/12 09:39 Order name: Magnesium; Complete Time: 11:00 rt 11/12 09:39 Order name: Troponin HS; Complete Time: 11:00 rt 11/12 09:39 Order name: XRAY Chest (1 view); Complete Time: 11:00 rt 11/12 09:39 Order name: EKG; Complete Time: 09:40 rt 11/12 09:39 Order name: Cardiac monitoring; Complete Time: 10:26 rt 11/12 09:39 Order name: EKG - Nurse/Tech; Complete Time: 10:26 rt 11/12 09:39 Order name: IV Saline Lock; Complete Time: 10: rt 11/12 09:39 Order name: Labs collected and sent; Complete Time: 10: rt 11/12 09:39 Order name: O2 Per Protocol; Complete Time: 10: rt 11/12 09:39 Order name: O2 Sat Monitoring; Complete Time: 10: rt EC: Rate is 67 beats/min. Rhythm is regular, A fib with No ectopy. QRS interval is normal. rt QT interval is normal. No Q waves. No ST changes noted. Interpreted by me. Administered Medications: :52 Drug: Meclizine PO 50 mg PO once Route: PO; db 11:00 Follow up: Response: No adverse reaction db 10:08 Drug: NS 0.9% IV 1000 ml IV at 1 bolus Per protocol; 1000 mL bolus Route: IV; Rate: 1 db bolus; Site: right antecubital; 11:30 Follow up: Response: No adverse reaction; IV Status: Completed infusion; IV Intake: db 1000ml 10:09 Drug: diphenhydrAMINE IVP 25 mg IVP once Route: IVP; Site: right antecubital; db 11:00 Follow up: Response: No adverse reaction db 10:10 Drug: metoCLOPramide IVP 10 mg IVP once; over 1 to 2 minutes Route: IVP; Site: right db antecubital; 11:00 Follow up: Response: No adverse reaction db 12:28 Drug: Magnesium Sulfate IVPB 2 grams IVPB once over 2 hrs Route: IVPB; Infused Over: 2 ph hrs; Site: right antecubital; 14:30 Follow up: Response: No adverse reaction; IV Status: Completed infusion; IV Intake: db 100ml 12:28 Drug: Droperidol IVP 1.25 mg IVP once Route: IVP; Site: right antecubital; ph 13:00 Follow up: Response: No adverse reaction db Disposition Summary: 11/13/23 15:14 Discharge Ordered Notes: Location: Home rt Problem: new rt Symptoms: have improved rt Condition: Stable rt Diagnosis - Benign paroxysmal vertigo, right ear rt - Headache rt - Otitis media, unspecified, right ear rt Followup: rt - With: Private Physician - When: 2 - 3 days - Reason: Discharge Instructions: - Discharge Summary Sheet hb - Benign Positional Vertigo rt - Otitis Media, Adult rt - General Headache Without Cause rt Forms: - SBAR form hb - Medication Reconciliation Form rt - Antibiotic Education rt - Prescription Opioid Use rt - Patient Portal Instructions rt - Leadership Thank You Letter rt Prescriptions: - Amoxicillin 875 mg Oral Tablet - take 1 tablet ORAL route every 12 hours for 10 days; 20 tablet; Refills: 0, rt Product Selection Permitted Signatures: Dispatcher [employer] Ayla Mendosa RN RN ph Tessa Samaniego RN RN hb Brenna Jose RN RN db [place], Ryan, MD MD rt Corrections: (The following items were deleted from the chart) 09:40 09:40 Neck Angio+CT.RAD.BRZ ordered. EDMS EDMS : 09:40 Head Brain Wo Cont+CT.RAD.BRZ ordered. EDMS EDMS : 09:46 Head angio ordered. EDMS EDMS : 12:11 Head angio ordered. EDMS EDMS : 12:11 Head Brain Wo Cont ordered. EDMS EDMS : 12:11 Neck Angio ordered. EDMS EDMS
--- NOTE | 2023-11-13 15:14 | ER ---
Nurse's Notes [facility] Name: Rita Ortega Age: 38 yrs Sex: Female : 1985 Arrival Date: 11/13/2023 Time: 09: Bed 5 Private MD: Diagnosis: Benign paroxysmal vertigo, right ear;Headache;Otitis media, unspecified, right ear Presentation: 11/12 09:21 Chief complaint: Headache and dizziness x 3 days. Coronavirus screen: At this time, the hb client does not indicate any symptoms associated with coronavirus-19. Ebola Screen: No symptoms or risks identified at this time. Initial Sepsis Screen: Does the patient meet any 2 criteria? No. Patient's initial sepsis screen is negative. Does the patient have a suspected source of infection? No. Patient's initial sepsis screen is negative. Risk Assessment: Do you want to hurt yourself or someone else? Patient reports no desire to harm self or others. Onset of symptoms was November 11, 2023. 09: Method Of Arrival: Ambulatory hb 09: Acuity: NATALY 3 hb Triage Assessment: : Headache History: Denies prior headaches. General: Appears in no apparent distress. hb uncomfortable, Behavior is calm, cooperative. Pain: Pain currently is 8 out of 10 on a pain scale. Pain began 2-3 days ago. Also complains of Dizziness. Neuro: Level of Consciousness is awake, alert, obeys commands, Oriented to person, place, time, situation, Reports dizziness, headache. Cardiovascular: Patient's skin is warm and dry. Respiratory: Respiratory effort is even, unlabored, Respiratory pattern is regular, symmetrical. Historical: - Allergies: : Sulfa (Sulfonamide Antibiotics); ph - PMHx: : Atrial Fib; Hypertensive disorder; ph - PSHx: 09:19 section; gastric sleeve; ph - Immunization history:: Adult Immunizations unknown. - Infectious Disease History:: Denies. - Social history:: Smoking status: Reported history of juuling and/or vaping. - Family history:: not pertinent. Screenin: Abuse screen: Denies threats or abuse. Denies injuries from another. Nutritional ph screening: No deficits noted. Tuberculosis screening: No symptoms or risk factors identified. 09:23 [facility] ED Fall Risk Assessment (Adult) History of falling in the last 3 months, db including since admission No falls in past 3 months (0 pts) Confusion or Disorientation No (0 pts) Intoxicated or Sedated No (0 pts) Impaired Gait No (0 pts) Mobility Assist Device Used No (0 pt) Altered Elimination No (0 pt) Score/Fall Risk Level 0 - 2 = Low Risk Oriented to surroundings, Maintained a safe environment. Assessment: 09:22 Reassessment: Patient appears in no apparent distress at this time. Reassessment: db Patient appears in no apparent distress at this time. Patient and/or family updated on plan of care and expected duration. Pain level reassessed. Patient is alert, oriented x 3, equal unlabored respirations, skin warm/dry/pink. General: Appears in no apparent distress. comfortable, Behavior is calm, cooperative. Neuro: Level of Consciousness is awake, alert, obeys commands, Oriented to person, place, time, situation. Respiratory: Airway is patent Respiratory effort is even, unlabored, Respiratory pattern is regular, symmetrical. 13:12 Reassessment: Patient appears in no apparent distress at this time. Patient and/or ph family updated on plan of care and expected duration. Pain level reassessed. Patient is alert, oriented x 3, equal unlabored respirations, skin warm/dry/pink. [facility] at bedside to transport pt to [place] for CT scan. 13:49 Reassessment: PATIENT RETURNED TO ROOM FROM CT BY EMS. db 14:00 Reassessment: Patient appears in no apparent distress at this time. Patient and/or db family updated on plan of care and expected duration. Pain level reassessed. Patient is alert, oriented x 3, equal unlabored respirations, skin warm/dry/pink. General: Appears in no apparent distress. comfortable. 15:00 Reassessment: Patient appears in no apparent distress at this time. Patient and/or db family updated on plan of care and expected duration. Pain level reassessed. Patient is alert, oriented x 3, equal unlabored respirations, skin warm/dry/pink. Vital Signs: 09:21 BP 170 / 79; Pulse 88; Resp 18; Temp 98.8(O); Pulse Ox 100% on R/A; Weight 181.44 kg; hb Height 5 ft. 9 in. ; Pain 8/10; 11:00 Weight 195 kg (M); hb 12:28 BP 140 / 78; Pulse 63; Resp 18; Pulse Ox 98% on R/A; ph 13:00 BP 135 / 68; Pulse 70; Resp 16; Pulse Ox 97% ; db 15:00 BP 168 / 82; Pulse 76; Resp 16; Pulse Ox 98% on R/A; db 09:21 Body Mass Index 59.07 (195.00 kg, 175.26 cm) hb 09:21 Pain Scale: Adult hb ED Course: 09:15 Patient arrived in ED. sj2 09:16 Garfield Cobb MD is Attending Physician. rt 09:21 Arm band placed on Patient placed in an exam room, on a stretcher. ph 09:21 Patient has correct armband on for positive identification. Bed in low position. Call ph light in reach. Side rails up X 1. Door closed. Noise minimized. 09:22 Triage completed. hb 09:22 Brenna Jose, RN is Primary Nurse. db 10:00 Missed attempt(s): 22 gauge in right antecubital area. Bleeding controlled, band aid db applied, catheter tip intact. 10:05 Initial lab(s) drawn, by me, sent to lab. Inserted saline lock: 22 gauge in right db antecubital area, using aseptic technique. Blood collected. Flushed with 10 mL NS. 10:13 XRAY Chest (1 view) In Process Unspecified. EDMS 15:20 Provided Education on: DISCHARGE. Pulse ox on. NIBP on. db 15:20 No provider procedures requiring assistance completed. IV discontinued, intact, db bleeding controlled, No redness/swelling at site. Administered Medications: 09:52 Drug: Meclizine PO 50 mg PO once Route: PO; db 11:00 Follow up: Response: No adverse reaction db 10:08 Drug: NS 0.9% IV 1000 ml IV at 1 bolus Per protocol; 1000 mL bolus Route: IV; Rate: 1 db bolus; Site: right antecubital; 11:30 Follow up: Response: No adverse reaction; IV Status: Completed infusion; IV Intake: db 1000ml 10:09 Drug: diphenhydrAMINE IVP 25 mg IVP once Route: IVP; Site: right antecubital; db 11:00 Follow up: Response: No adverse reaction db 10:10 Drug: metoCLOPramide IVP 10 mg IVP once; over 1 to 2 minutes Route: IVP; Site: right db antecubital; 11:00 Follow up: Response: No adverse reaction db 12:28 Drug: Magnesium Sulfate IVPB 2 grams IVPB once over 2 hrs Route: IVPB; Infused Over: 2 ph hrs; Site: right antecubital; 14:30 Follow up: Response: No adverse reaction; IV Status: Completed infusion; IV Intake: db 100ml 12:28 Drug: Droperidol IVP 1.25 mg IVP once Route: IVP; Site: right antecubital; ph 13:00 Follow up: Response: No adverse reaction db Medication: 09:21 VIS not applicable for this client. ph Intake: 11:30 IV: 1000ml; Total: 1000ml. db 14:30 IV: 100ml; Total: 1100ml. db Outcome: 15:14 Discharge ordered by . rt 15:20 Discharged to home ambulatory, db 15:20 Condition: stable 15:20 Discharge instructions given to patient, Instructed on discharge instructions, follow up and referral plans. Prescriptions given X 1, 15:40 Patient left the ED. db Signatures: Dispatcher [employer] EDAyla Massey RN RN Tessa Samaniego RN RN hb Brenna Jose RN RN db Garfield Cobb MD MD rt Tameka Kimble 2 Corrections: (The following items were deleted from the chart) 11:59 09:21 BP 170 / 79; Pulse 88bpm; Resp 18bpm; Pulse Ox 100% RA; Temp 98.8F Oral; 181.44 hb kg; Height 5 ft. 9 in.; BMI: 59.0; Pain 8/10, Adult; hb
[2023-11-13 15:58] VITALS: TEMP 98.8
[2023-11-13 16:03] VITALS: BP 168/82; O2SAT 98
--- NOTE | 2023-11-15 16:59 | EKG ---
Test Date: 2023-11-13 Test Time: 10:14:50 Fan Installer: REYES MEASUREMENT RESULTS: Intervals: Rate: 67 [place]: QRSD: 90 QT: 424 QTc: 448 Annabella: P: NJ: QRS: 25 T: 18 INTERPRETIVE STATEMENTS: Undetermined rhythm Low voltage QRS Cannot rule out Anterior infarct, age undetermined Abnormal ECG Compared to ECG 10/24/2020 13:23:57 Myocardial infarct finding now present Sinus rhythm no longer present Electronically Signed On 11-15-23 16:53:59 CDT by Sang Santos
== END 2023-11-13 15:40 | disposition home or self-care (01) ==
LOC: ER 09:09
DX: H81.11 Benign paroxysmal vertigo, right ear (principal); H66.91 Otitis media, unspecified, right ear; R51.9 Headache, unspecified; I10 Essential (primary) hypertension; I48.20 Chronic atrial fibrillation, unspecified; F17.290 Nicotine dependence, other tobacco product, uncomplicated; Z88.5 Allergy status to narcotic agent
CPT/HCPCS: 96365; 96361; 93005; 85025; 80048; 36415; 83735; 80076; 84484; 71045; 96375; 99284; 96366; J8597; J3475; J2765; J1200; J7030